=== PATIENT | female | born 1975 | race Caucasian/White ===

== ENCOUNTER 2023-06-18 18:31 | Emergency (ER) | payer MEDICARE, MEDICAID, SELFPAY ==
[2023-06-18 18:32] VITALS: BP 151/104; PULSE 84; RESP 18; TEMP 36.9; O2SAT 98; BMI 38.0
--- NOTE | 2023-06-18 19:06 | EXP.UTC ---
Discharge Plan Disposition Patient Disposition: Home, Self-Care Condition: Good Prescriptions Prescriptions: New amoxicillin [amoxicillin] 875 mg tablet 875 mg PO Q12H Qty: 20 0RF benzonatate [benzonatate] 100 mg capsule 100 mg PO TIDP PRN (Reason: Cough) Qty: 30 0RF prednisone 10 mg tablet 10 mg PO BID 3 Days Qty: 6 0RF Referrals Follow up/Referrals: Haroldo Mathias [Primary Care Provider] - See instructions Activity Restrictions/Add. Instructions Additional Instructions/Restrictions: Drink plenty of fluids. Take tylenol or ibuprofen for pain or fever. Take the medications as directed. Follow up with your regular doctor. GO TO THE ER FOR ANY WORSENING SYMPTOMS Clinical Impressions Clinical Impression: Strep throat Instructions Patient Instructions: Strep Throat, DI for Strep Throat Discharge ED Provider: Jesse Lehman [facility] HPI General Stated complaint: cough, congestion Time Seen by Provider: 06/18/23 19:05 History of Present Illness Provider Complaint: She states that for the past 2 days she has had sore throat, chills, and low grade fever. Related Data Previous Rx's Medication Instructions Recorded amoxicillin 875 mg tablet 875 mg PO Q12H #20 tabs 06/18/23 benzonatate 100 mg capsule 100 mg PO TIDP PRN Cough #30 caps 06/18/23 prednisone 10 mg tablet 10 mg PO BID 3 days #6 tabs 06/18/23 [facility] Disclaimer: The information contained in this section may have been updated after the patient was seen, as this information can be updated by other users. Social History Smoking Status: Never smoker alcohol intake: never current occupational status: employed Travel in the last 8 weeks: None ROS Obtained: Yes All systems reviewed & no additional complaints except as documented Constitutional Constitutional: Reports chills and Reports fever(s) Eyes Eyes: Denies eye discharge ENT Ears, Nose, Mouth, and Throat: Reports as per HPI Cardiovascular Cardiovascular: Denies chest pain Respiratory Respiratory: Denies chest congestion and Reports cough Gastrointestinal Gastrointestingal: Reports nausea; Denies abdominal pain, constipation, cramping, diarrhea or vomiting Musculoskeletal Musculoskeletal: Denies arthralgias Integumentary/Breasts Skin/Breast: Denies rash Neurologic Neurologic: Denies paresthesias Physical Exam General General appearance: alert and in no apparent distress Head Head exam: atraumatic, normocephalic and normal inspection Eye Eye exam: Present normal appearance, PERRL and EOMI ENT ENT exam: Present mucous membranes moist and normal external ear exam Expanded ENT Exam TM/Canal exam: Bilateral TM: erythema and bulging Nose exam: Absent sinus tenderness Mouth exam: Present normal external inspection; Absent drooling Teeth exam: Present normal inspection Throat exam: Present tonsillar erythema, tonsillomegaly and tonsillar exudate Neck Neck exam: Present normal inspection, full ROM and trachea midline; Absent tenderness, meningismus or lymphadenopathy Chest Chest inspection: Present normal inspection and symmetric chest wall rise; Absent tenderness Respiratory Respiratory exam: Present normal lung sounds bilaterally; Absent respiratory distress, wheezes or stridor Cardiovascular Cardiovascular exam: Present regular rate and normal rhythm; Absent systolic murmur or diastolic murmur Abdominal Exam Abdominal exam: Present soft and normal bowel sounds; Absent distention, tenderness, guarding, rebound or rigidity Extremities Exam Extremities exam: Present normal inspection and normal capillary refill; Absent calf tenderness Back Exam Back exam: Present normal inspection and full ROM; Absent tenderness, CVA tenderness (R) or CVA tenderness (L) Neurological Exam Neurological exam: Present alert, oriented X3 and CN II-XII intact Psychiatric Psychiatric exam: Present normal affect and normal mood Skin Skin exam: Present warm, dry, intact and normal col
[2023-06-18 19:27] LABS: UTC Strep Screen (Rapid) Positive (Negative)
[2023-06-18 19:48] VITALS: BP 126/63; PULSE 84; RESP 18; TEMP 36.9; O2SAT 98
== END 2023-06-18 19:50 | disposition home or self-care (01) ==
PROVIDERS: Emergency Provider Nurse Practitioner Family; PCP Pediatrics
DX: J02.0 Streptococcal pharyngitis (principal); R07.0 Pain in throat; R05.9 Cough, unspecified; R09.81 Nasal congestion; R50.9 Fever, unspecified
CPT/HCPCS: 87880; 99204; 99212; G0463

== ENCOUNTER 2024-12-29 15:40 | Outpatient (CLI) | payer MEDICARE, MEDICAID, SELFPAY ==
[2024-12-29 18:48] LABS: Basophils % 0.7 % (0.1-2.0); Eosinophils # 0.1 Kmm3 (0.0-0.4); Eosinophils % 1.8 % (0.1-12.0); Hematocrit 41.3 % (37.0-47.0); Hemoglobin 13.3 g/dL (12.2-16.2); Immature Granulocytes # 0.01 10^3uL; Immature Granulocytes % 0.2 %; Lymphocytes # 2.3 K/mm3 (0.7-4.5); Lymphocytes % 36.7 % (10-50); Mean Corpuscular HGB Conc 32.2 g/dL (31.8-35.4); Mean Corpuscular Hemoglobin 27.1 pg (27.0-31.2); Mean Corpuscular Volume 84.1 fl (81-99); Mean Platelet Volume 10.2 fl (7.4-10.4); Monocytes # 0.3 K/mm3 (0.1-1.0); Monocytes % 4.2 % (1.7-9.3); Neutrophils # 3.5 K/mm3 (1.8-7.8); Neutrophils % 56.4 % (37.0-80.0); Nucleated Red Blood Cells # 0 10^3/uL; Nucleated Red Blood Cells % 0 %; Platelet Count 296 K/mm3 (142-424); Red Blood Count 4.91 M/mm3 (4.20-5.40); Red Cell Distribution Width 14.2 % (11.5-17.5); Red Cell Distribution Width-SD 43.6 fL; White Blood Count 6.2 K/mm3 (4.8-10.8)
[2024-12-29 19:15] LABS: Hemoglobin A1C 5.8 % (4.0-6.0)
[2024-12-29 19:53] LABS: Alanine Aminotransferase 14 U/L (12-78); Albumin Level 4.5 g/dl (3.5-5.0); Albumin/Globulin Ratio 1.4 (1.1-1.8); Alkaline Phosphatase 75 U/L (38-126); Anion Gap 6.1 mEq/L (5-15); Aspartate Amino Transferase 22 U/L (14-36); Bilirubin,Total 0.4 mg/dl (0.2-1.3); Blood Urea Nitrogen 10 mg/dl (7-17); Calcium 9.4 mg/dl (8.4-10.2); Carbon Dioxide 30 mmol/L (22.0-30.0); Chloride 103 mmol/L (98-107); Chol/HDL Ratio 4.1 (1-3.5); Cholesterol 234 mg/dl (140-200); Estimated Glomerular Filt Rate 77 ml/min (>60); GFR (African American) 93 ML/MIN (>60); Globulin 3.3 g/dL (1.3-3.2); Glucose 101 mg/dl (74-100); HDL Cholesterol 57 mg/dl (40-60); Potassium 5.1 mmoL/L (3.5-5.1); Sodium 134 mmol/L (136-145); Total Protein,Serum 7.8 g/dl (6.3-8.2); Triglycerides 120 mg/dl (30-150); VLDL Cholesterol 24 mg/dL (0-40)
[2024-12-29 20:04] LABS: Direct LDL Cholesterol 141.52 mg/dL (100-129)
[2024-12-29 20:26] LABS: Thyroid Stimulating Hormone 1.18 uIU/mL (0.465-4.68)
[2024-12-29 21:42] LABS: HIV Combo NEGATIVE (Negative)
[2024-12-29 21:52] LABS: Hepatitis C Ab Qual. W/ RFX NEGATIVE (Negative)
[2024-12-31 05:13] LABS: Hepatitis B Surface Antigen Negative (Negative)
== END 2024-12-29 23:59 | disposition home or self-care (01) ==
LOC: LAB.DROPOF 12-30 13:23
PROVIDERS: PCP Family Medicine; Visit Provider Family Medicine
DX: E11.9 Type 2 diabetes mellitus without complications (principal); Z76.89 Persons encountering health services in other specified circumstances; Z11.59 Encounter for screening for other viral diseases
CPT/HCPCS: 80053; 80061; 83036; 84443; 85025; 86803; 87340; 87389

== ENCOUNTER 2025-01-13 17:13 | Outpatient (CLI) | payer MEDICARE, MEDICAID, SELFPAY ==
--- OUTSIDE RECORDS SUMMARY | 2022-01-16 10:30 | XMS_ITS | Continuity of Care Document ---
Author Organization [facility] Address [address] [place] [address] Phone Care Team Providers Care Manager Food Beverage Name Role Phone Danis Petit MD Unavailable Unavailable Allergies, Adverse Reactions, Alerts Substance Reaction Status Criticality Sulfa (Sulfonamide Antibiotics) DifficultyBreathing, I tchyEyes, Active No Information Medications Medication Instructions Dosage Effective Dates (start - stop) Status Comments buspirone 10 mg tablet - Act namita topiramate 25 mg tablet - Ac tive diclofenac 1 % topical gel - Active methocarbamol 750 mg tablet - Active naproxen 500 mg tablet - Act namita venlafaxine ER 150 mg capsule,extended release 24 hr - Active ergocalciferol (vitamin D2) 1,250 mcg (50,000 unit) capsule - Active cetirizine 10 mg tablet TAKE 1 TABLET BY MOUTH EVERY DAY - Active gabapentin 800 mg tablet - Active oxycodone-acetaminophen 7.5 mg-325 mg tablet - Active oxycodone-acetaminophen 10 mg-325 mg tablet - Active escitalopram 10 mg tablet - Active montelukast 10 mg tablet - Active gabapentin 600 mg tablet - Active buspirone 15 mg tablet TAKE ONE TABLET B Y MOUTH TWO TIMES DAILY - Active pantoprazole 40 mg tablet,delayed release TAKE ONE TABLET BY MOUTH ONCE DAILY - Active prednisone 10 mg tablet TAKE 5 TABS BY M OUTH DAILY FOR 2 DAYS,4 TABS DAILY FOR 2 DAYS,3 TABS DAILY FOR 2 DAYS, 2 TABS DAILY FOR 2 DAYS,1 TAB DAILY FOR 2 DAYS,1/2 TAB DAILY FOR 2 DAYS - Active Procedures Procedure Date Office/outpatient visit,vera decker 2021 Advance Directives Directive Yes / No Effective Date File Name No Information Encounters Encounter Description Practice Location Reason(s) For Visit Diagnoses Date Provider Providers Copied on Encounter Office/outpat ient visit,[facility] [address] [place], [address], [place] tel:[phone] 700 [facility] Chad Low back pain, unspecified 2 Damaso Moscoso. [facility] [place], [address], . tel:[phone] Referring Provider: Danis Petit, [facility] [place], [address]. tel:[phone] Family History Family Member Type Diagnosis Age At Onset Brother Problem (finding) Mental illness Mother Problem (finding) Mental illness Sister Problem (finding) Family history of Spine Disorder Brother Problem (finding) Depression Father Problem (finding) Renal disease Mother Problem (finding) Cancer Sister Problem (finding) Cancer Sister Problem (finding) Family history of Glauc oliverio Father Problem (finding) Congenital heart diseas e Mother Problem (finding) Depression Sister Problem (finding) Mental illness Brother Problem (finding) Family history of Osteo arthritis Father Problem (finding) Family history of Glauc oliverio Mother Problem (finding) Family history of Osteo arthritis Brother Problem (finding) Family history of Spine Disorder Mother Problem (finding) Blood disorder Father Problem (finding) Diabetes mellitus Mother Problem (finding) Congenital heart diseas e Brother Problem (finding) Cancer Sister Problem (finding) Family history of Osteo arthritis Mother Problem (finding) Family history of Spine Disorder Sister Problem (finding) Depression Payers Payer name Insurance type Covered libertarian ID Authoriza tishmuel(s) Medicare [address] [place] [id number] Well[employer] Medicaid CI [id number] Social History Type Description Quantity Date Captured Comments Alcohol Use Details No Caffeine Use Details Tobacco Use Status Smoking Status Current every day smoker 2021 Sex Female Vital Signs Date / Time: Height Weight BMI Pulse Rate Blood Pressure Temperature Respiratory Rate Body Surface Area Head Circumference Head Circ. Percentile Wt./Woody. Percentile BMI percentile Pulse Ox Inhaled Ox 2:27 PM 61.00 in 92.533 kg (204.00 lbs) 38.5 5 kg/m eter (2) 161/79 mm[Hg] 99 % Chief Complaint And Reason For Visit No Information Reason For Referral Reason For Referral No Information History Of Present Illness Encounter Date Complaint History Of Prese nt Illness back pain Functional Status Date Functional Assessmen t Pain Score 6/10 Instructions Date Instruction Additional Infor mation No Information Assessments Type Assessment Date No Information Patient Care Teams Name Effective Dates (start - stop) Status Members No Information
--- NOTE | 2025-01-13 17:00 | MR_ITS ---
PROCEDURE INFORMATION: Exam: MR Lumbar Spine Without and With Contrast Exam date and time: 01/13/2025 5:32 PM Age: 49 years old Clinical indication: Low back pain; Lbp down left leg with tingling and numbness; Additional info: Annular tear l3-l4 TECHNIQUE: Imaging protocol: Magnetic resonance imaging of the lumbar spine without and with contrast. Contrast material: ISOVUE; Contrast volume: 18 ml; Contrast route: IV; COMPARISON: No relevant prior studies available. FINDINGS: Bones/joints: Nonspecific bilateral T2/STIR hyperintense signal changes involving the pedicles of L3 through L5 may represent stress reactive changes. Spinal cord: Visualized cord, conus medullaris and cauda equina are unremarkable without compression. L1-L2: L1-L2 small broad-based posterior disc protrusion indents upon the ventral thecal sac without significant spinal canal or neural foraminal stenosis. L2-L3: L2-L3 small broad-based posterior disc protrusion with facet osteophytosis results in mild bilateral neural foraminal stenosis and mild spinal canal stenosis. L3-L4: L3-L4 small broad-based posterior disc protrusion having left subarticular T2 hyperintensity zone with facet osteophytosis results in moderate bilateral neural foraminal stenosis and mild spinal canal stenosis. L4-L5: L4-L5 moderate broad-base posterior disc protrusion having left subarticular T2 hyperintensity zone with facet osteophytosis results in moderate bilateral neural foraminal stenosis and mild spinal canal stenosis. L5-S1: L5-S1 small broad-based posterior disc protrusion having central T2 hyperintensity zone with facet osteophytosis results in mild bilateral neural foraminal stenosis without spinal canal stenosis. Soft tissues: Unremarkable. IMPRESSION: 1. Nonspecific bilateral T2/STIR hyperintense signal changes involving the pedicles of L3 through L5 may represent stress reactive changes. 2. Vnxw-tu-irwwmbxr multilevel discogenic degenerative changes greatest from L3 through L5 with spinal canal and neural foraminal stenosis as discussed above.
--- OUTSIDE RECORDS SUMMARY | 2025-01-13 17:16 | XMS_ITS | Clinical Summary ---
Author Organization [facility] Address [address] [facility], [place] [address] [place] [address] Phone Care Team Providers Care Public Transportation Inspector Name Role Phone Anne SNIDER, Zackery Liriano [phone] Conditions or Problems Problem Name Problem Code Onset Date Status Entry Date Provider Comment Standard Description Annotate INTERVERTEBRAL DISC DISORDERS WITH RADICULOPATHY, LUMBAR REGION M51.16 (ICD-10-C M) Active Zackery Rodríguez MD Intervertebral disc disorders with radiculopathy, lumbar region Medications Medication Instructions Start Date Stop Date Generic Name NDC Provider NORCO 5-325 MG ORAL TABLET Take 1 tab TID 2 HYDROCODONE-AC ETAMINOPHEN [id number] Zackery Rodríguez MD CLARITIN TABS [place] 2 LORATADINE TABS [id number] Zackery Rodríguez MD WELLBUTRIN TABLET [facility] 2 BUPROPION HCL TABS [id number] Zackery Rodríguez MD GABAPENTIN CAPS Non-[place] 2 GABAPENTIN CAPS [id number] Zackery Rodríguez MD Medications Administered No information available. Allergies, Adverse Reactions, Alerts Allergy Name Reaction Description Start Date Severity Statu s Provider CODEINE Critical Zackery robertson MD ASPIRIN Cameron robertson MD BACTRIM Critical Zackery robertson MD Results No information available. Plan of Care Type Date Detail Patient education lumbar%20disc% 20herniation Procedures Code Procedure Name Date Entry Date [facility]-[id number] Medications Documented 1124F No ACP/POA documented but discussed 05/18 G8483 No flu shot received; allergy etc. 2438T5T No pneumococcal vaccine received; no reas on 4004F Tobacco user- receiv ed cessation information G8417 BMI above normal, f/u plan documented 201 12/04/21 G8730 Pain Assessment posi tive with follow up plan G8427 Medication Reconcili ation Completed CPT-G8427 Vital Signs Date Name Value Unit Description BMI (Body Mass Index) 30.80 kg/m2 Bod y Mass Index (Ratio) BP Diastolic 95 mm[Hg] blood pressu re, diastolic BP Systolic 132 mm[Hg] blood pressur e, systolic Heart Rate 80 /min pulse rate Height 61 [in_us] height E&M Weight Measured 163 [lb_av] weight E& M Weight Measured 163 [lb_av] weight E& M Immunizations No information available. Advance Directives No information available.
--- OUTSIDE RECORDS SUMMARY | 2025-01-13 17:17 | XMS_ITS | Clinical Summary ---
Author Organization [facility] Address [address] [place] [id number] Phone Care Team Providers Care Semiconductor Packages Platemaker Name Role Phone Keaton COOLEYGabriella Primary Care Physician [phone] Conditions or Problems Problem Name Problem Code Onset Date Status Entry Date Provider Comment Standard Description Annotate NASOPHARYNG ITIS 59672684 (SNOMED CT) 08/25 Inactive 08/25 Susan Garcia APRN Nasopharyngiti s CBC, abnormal 261841424 (SNOMED CT) 09/12 Resolved 09/12 Susan Garcia APRN Full blood count outside reference range Disturbance of skin sensation 05331322 (SNOMED CT) 09/12 Resolved 09/12 Susan Garcia APRN Skin sensation disturbance Ovarian cyst, left 52231938 (SNOMED CT) 09/18 Active 07/28 Susan Garcia APRN Cyst of ovary HEMORRHAGIC CYST Disturbance of skin sensation 27352796 (SNOMED CT) 09/12 Removed 09/12 Susan Garcia APRN Skin sensation disturbance CBC, abnormal 644516582 (SNOMED CT) 09/12 Removed 09/12 Susan Garcia APRN Full blood count outside reference range Menorrhagia 510588643 (SNOMED CT) 09/12 Active 09/12 Susan Garcia APRN Menorrhagia Breast mass, right 70616868 (SNOMED CT) 07/31 Active 07/31 Susan Garcia APRN Breast lump FATIGUE 40681294 (SNOMED CT) 07/31 Active 07/31 Susan Garcia APRN Fatigue HEALTH SCREENING 38701736 (SNOMED CT) 07/31 Inactive 07/31 Susan Garcia APRN Specialized medical examination Medications Medication Instructions Start Date Stop Date Generic Name [facility] Provider BARRY ARSHAD 100 MG ORAL CAPSULE TAKE 1 TO 2 CAPS BY MOUTH EVERY 8 HOURS NEEDED FOR COUGH 9 BENZONATATE [id number] Susan Garcia APRN LORATADINE 10 MG TABS TAKE 1 TABLET BY MOUTH 1 TIME A DAY NEEDED FOR ALLERGIES 9 LORATADINE [id number] Susan Garcia APRN FLUTICASONE PROPIONATE 50 MCG/ACT SUSP 2 SPRAYS IN EACH NOSTRIL 1 TIME A DAY 9 FLUTICASONE PROPIONATE [id number] Susan Garcia APRN Medications Administered No information available. Allergies, Adverse Reactions, Alerts Allergy Name Reaction Description Start Date Severity Statu s Provider CODEINE Critical Active Susan Garcia APRN ASPIRIN Critical Active Susan Garcia APRN BACTRIM Critical Active Susan Garcia APRN Results Date Name Value Unit Range Flag Description Lab Report: CBC (INCLUDES DI FF/PLT), COMPREHENSIVE METABOLIC PANEL, LIPI ... TSHREFLX FT4 1.04 m[iU]/L N TSH (thy roid stimulating hormone) with reflex FT4 CHOLESTEROL 167 mg/dL 125-200 N Cholester ol [Mass/volume] in Serum or Plasma - mg/dL HDL 56 mg/dL >OR = 46 N Cholesterol in HDL [Mass/volume] in Serum or Plasma - mg/dL TRIGLYCRDES 74 mg/dL <150 N Triglycer criss [Mass/volume] in Serum or Plasma - mg/dL LDL 96 MG/DL (CALC) mg/dL <130 N Cholesterol in L DL [Mass/volume] in Serum or Plasma - mg/dL CHOL/HDL % 3.0 (calc) < OR = 5.0 N cholesterol/HDL ratio, serum, percent SGPT (ALT) 8 U/L 6-29 N Alanine aminotransferase [Enzymatic activity/volume] in Serum or Plasma SGOT (AST) 16 U/L 10-30 N Aspartate aminotransferase [Enzymatic activity/volume] in Serum or Plasma ALK PHOS 48 U/L 33-115 N Alkaline phosphatase [Enzymatic activity/volume] in Blood BILI TOTAL 0.4 mg/dL 0.2-1.2 N Bilirubin. total [Mass/volume] in Serum or Plasma A/G RATIO 1.6 (calc) 1.0-2.5 N Albumin/ Globulin [Mass Ratio] in Serum or Plasma GLOBULIN TOT 2.7 G/DL (CALC) g/dL 1.9-3.7 N Globulin [Mass/volume] in Serum ALBUMIN EOP 4.3 g/dL 3.6-5.1 N Albumin [Mass/volume] in Serum or Plasma by Electrophoresis PROTEIN, TOT 7.0 g/dL 6.1-8.1 N Protein [Mass/volume] in Serum or Plasma CALCIUM 9.0 mg/dL 8.6-10.2 N Calcium [Moles/volume] in Serum or Plasma CO2 25 mmol/L 19-30 N Carbon dioxid e, total [Moles/volume] in Venous blood CHLORIDE BLD 106 mmol/L 98-110 N chloride , blood POTASSIUM 4.3 mmol/L 3.5-5.3 N Potassium [Moles/volume] in Serum or Plasma SODIUM 138 mmol/L 135-146 N Sodium [Moles/volume] in Serum or Plasma BUN/CREAT NOT APPLICABLE (calc) 6-22 Urea nitrogen/Creatinine [Mass Ratio] in Serum or Plasma EGFR 94 mL/min/1 .73m2 >OR = 60 N Glomerular filtration rate/1.73 sq M.predicted [Volume Rate/Area] in Serum, Plasma or Blood by Creatinine-based formula (MDRD) CREATININE 0.80 mg/dL 0.50-1.10 N Creatini ne [Mass/volume] in Serum or Plasma BUN 10 mg/dL 7-25 N Urea nitrogen [Mass/volume] in Serum or Plasma BG RANDOM 84 mg/dL 65-99 N Glucose [Mass/volume] in Blood Lab Report: CA 125, CBC (INC LUDES DIFF/PLT), ESTRADIOL, VITAMIN B12 B12 452 pg/mL 200-1100 N Cobalamin (V itamin B12) [Mass/volume] in Serum or Plasma BASO % MANU 0.4 % N basophils as percent of blood leukocytes, manual count EOS % MANU 3.6 % N eosinophil s as percent of blood leukocytes, manual count MONOCYTE % 3.7 % N Monocytes/ 100 leukocytes in Blood by Automated count LYMPH% P BLD 27.9 % N lymphocy evans as percent of blood leukocytes PMN % 64.4 % N Neutrophils/1 00 leukocytes in Blood by Automated count ABS BASOS 24 {Cells}/ uL 0-200 N Basophils [#/volume] in Blood ABS EOS 212 {Cells}/ uL 15-500 N Eosinophils [#/volume] in Blood ABS MONOS 218 {Cells}/ uL 200-950 N Monocytes [#/volume] in Blood ABSLYMPHCT 1646 {Cells}/ uL 850-3900 N Lymphocytes [#/volume] in Blood ABS NEUTROPH 3800 CELLS/UL 10*3/uL 8829-2527 N Neutrophils [#/volume] in Blood PLATELETK/UL 213 THOUSAND/UL 10*3/uL 140-400 N platelet count RDW 14.4 % 11.0-15.0 N Erythrocyte distribution width [Ratio] by Automated count OL-MCHC 33.0 g/dL 32.0-36.0 N mean corpus cular hemoglobin concentration, rbc MCH 27.4 pg 27.0-33.0 N MCH [Entiti c mass] by Automated count MCV 82.9 fL 80.0-100. 0 N MCV [Entitic volume] by Automated count HCT 38.6 % 35.0-45.0 N Hematocrit [Volume Fraction] of Blood by Automated count HGB 12.8 g/dL 11.7-15.5 N Hemoglobin [Mass/volume] in Blood RBC M/UL 4.66 MILLION/UL 10*6/uL 3.80-5.10 N red blood count WBC CT BLOOD 5.9 10*3/uL 3.8-10.8 N leukocy te count, blood CA-125 10 U/mL <35 N Cancer Ag 125 [Presence] in Serum or Plasma Office Visit: sore throat RAPID STREP negative Streptoc occus pyogenes DNA [Presence] in Throat by MILE with probe detection Plan of Care Type Date Detail Pending order Ultrasound Pelvi s Pending order Strep Screen 878 80 Pending order Pelvic Ultrasoun d Pending order CBC with Differe ntial Pending order B12 Pending order Estradiol Pending order CA 125 Pending order CBC with Differe ntial Pending order CMP Pending order Lipid Panel Pending order TSH to Free T-4 Pending order Fluvirin Preserv ative Free Intramuscular Suspension Pending order Ix admin via IN or PO with counseling by physician Patient education Medications Procedures Code Procedure Name Date Entry Date US PELVIS DANGELO Ultrasound Pelvis 2 CPT-21918 Strep Screen 12162 9 PU Pelvic Ultrasound 6399 [facility] # CBC with Differential 2 927 [facility] # B12 4021 [facility] # Estradiol [facility] 468[address] CA 125 CPT-70659 Fluvirin Preservativ e Free Intramuscular Suspension CPT-81083 Ix admin via IN or P O with counseling by physician 6399 [facility] # CBC with Differential 2 86801 [facility] # CMP 4 68115 [facility] # Lipid Panel 08860 [facility] # TSH to Free T-4 07/31 Vital Signs Date Name Value Unit Description BMI (Body Mass Index) 27.74 kg/m2 Bod y Mass Index (Ratio) Body Temperature 98.3 [degF] temperat ure E&M Body Temperature 36.8 Cathie temperat ure in centigrade E&M BP Diastolic 76 mm[Hg] blood pressu re, diastolic BP Systolic 122 mm[Hg] blood pressur e, systolic Heart Rate 88 /min pulse rate Height 162.56 cm height in cent imeters E&M Height 64 [in_us] height E&M Weight Measured 161 [lb_av] weight E& M Weight Measured 161 [lb_av] weight E& M Weight Measured 73.18 kg weight in kilograms E&M Immunizations Vaccine Administration Date Standard Description CVX Co de Dose fluvirin preservative free intramuscular suspension 48mo+ pfs 0.5ml fluvirin preservative free intramuscular suspension 48mo+ pfs 0.5ml 140 0.5 mL Advance Directives Directive Description Start Date DISCUSSED - NO DECISION MADE
--- OUTSIDE RECORDS SUMMARY | 2025-01-13 17:17 | XMS_ITS | Clinical Summary ---
Author Organization [facility] Address [address] [place] [id number] Care Team Providers Care Physician Primary Care Sports Medicine Name Role Phone Gaurav Alvarenga MD Primary Care Provider [phone] Source Comments This information has been disclosed to you from confidential records protectedfrom disclosure by state law. You shall make no further disclosure of thisinformation without the specific, written, and informed release of theindividual to whom it pertains, or as otherwise permitted by law. A generalauthorization for the release of medical or other information is not sufficientfor the purposes of therelease of HIV test results or diagnoses. [id number] Allergies Active Allergy Reactions Criticality Noted Date Comments Aspirin Nausea Only 05/11/2019 Sulfamethoxazole-Trimethoprim Anaphylaxis High 05/11 Codeine Nausea Only 05/11/2019 Medications meloxicam (MOBIC) 15 MG tablet Take 15 mg by mouth daily. Active topiramate (TOPAMAX) 25 MG tablet Take 25 mg by mouth daily. Active SUMAtriptan (IMITREX) 50 MG tablet Take 50 mg by mouth once as needed for Migraine. Active gabapentin (NEURONTIN) 800 MG tablet Take 800 mg by mouth 3 times a day. Active methocarbamol (ROBAXIN) 750 MG tablet Take 750 mg by mouth 3 times a day. Active oxyCODONE-aceta minophen (PERCOCET) 10-325 mg per tablet Take 1 tablet by mouth every 4 hours as needed for Pain. Active diclofenac sodium (SOLARAZE) 3 % gel Apply 2 g topically 4 times a day. Active venlafaxine (EFFEXOR) 37.5 MG tablet Take 37.5 mg by mouth daily. Active busPIRone (BUSPAR) 10 MG tablet Take 10 mg by mouth 2 times a day. Active nicotine (NICODERM CQ) 21 mg/[address] 1 patch onto the skin daily. Active omeprazole (PRILOSEC) 20 MG capsule Take 20 mg by mouth every morning before breakfast. Active Active Problems Problem Noted Date Diagnosed Date Chronic left-sided low back pain with left-sided sciatica 05/11/2019 Neck pain 05/11/2019 Hand pain 05/11/2019 Hand weakness 05/11/2019 Social History Tobacco Use Types Packs/Day Years Used Date Smoking Tobacco: Every Day Cigarettes Smokeless Tobacco: Never Alcohol Use Standard Drinks/Week Comments Never 0 (1 standard drink = 0.6 oz pur e alcohol) AUDIT-C Answer Date Recorded Frequency of Alcohol Consumption Never 05/11/2019 Average Number of Drinks Not on file 019 Frequency of Binge Drinking Not on file 04/27 Comments Unknown Sex and Gender Information Value Date Recorded Sex Assigned at Not on file Legal Sex Female 4:19 PM EST Gender Identity Not on file Sexual Orientation Not on file Last Filed Vital Signs Vital Sign Reading Time Taken Comments Blood Pressure 110/70 05/11/2019 2:04 PM EDT Pulse 87 05/11/2019 2:04 PM EDT Temperature 37.1 C (98.7 F) 05/11/2019 2:04 PM EDT Respiratory Rate - - Oxygen Saturation 97% 05/11/2019 2:04 PM EDT Inhaled Oxygen Concentration 97% 05/11/2019 2 :04 PM EDT Weight 84.1 kg (185 lb 6.4 oz) 05/11/2019 2:04 P M EDT Height 154.9 cm (5' 1 ) 05/11/2019 2:04 PM EDT Body Mass Index 35.03 05/11/2019 2:04 PM EDT Plan of Treatment Not on file [place] [address] [place] [address] Care Teams Physician Primary Care Sports Medicine Relationship Specialty Start Date End Date Gaurav Alvarenga MD PCP - General Family Medicine 05/11/19
--- OUTSIDE RECORDS SUMMARY | 2025-01-13 17:17 | XMS_ITS | Data Portability ---
Author Organization [facility]ly [facility] Address [address] [place] [address] Care Team Providers Care Queen'S Counsel Name Role Phone THELMATANISHA MANZANO Primary Care Provider Assessment Encounter Date Assessment Date Assessment LastModified by Organization Details LastModified Time 10/22/2022 10/22/2022 HPI: This is a 47-year-old female with neck and low back pain She has chronic neck and low back pain. Has been seen in the past at a pain clinic in [facility]. Denies any illicit drug use, incontinence, or cauda equina symptoms. Most recent MRI was within the last year. I do not have this for review today. Her pain clinic close, her PCP has been prescribing opioid medication since then. She presents today for medication management and further interventional management. No prior neck or back surgery. Was declared to not be a surgical candidate at [facility]. Anticoagulants: None PMHx: None INJ Hx: Multiple lumbar injections PSHx/Surgical Evaluation: Not a surgical candidate per evaluation by [facility] IMAGING: MRI requested The above image findings were discussed with the patient. Current medications include Percocet and gabapentin. The patient feels that they receive adequate analgesia and activity improvement with the medication. The patient denies side effects from the medications. UDS obtained. ORT, PHQ-9 and DORENE were reviewed today. MAGNUS report was reviewed today and is appropriate. Based upon the above I would consider the patient to be Low risk. PT The patient completed over six weeks of physical therapy in the past without benefit for their pain ASSESSMENT/PLAN This is a 47-year-old female with neck and low back pain I will provide her with neck and low back, exercise program today. We will prescribe [place] 10 mg 3 times daily as well as gabapentin 800 mg 3 times daily. I will have her follow-up in 1 month for reassessment. We will request the records from [facility] as well as her MRI. Pending results, recommend TELMA. If she is not a surgical candidate and does not derive significant benefit from her injection therapy, consider SCS External records were reviewed and discussed as above, including imaging, clinical notes, and relevant labs. Much of this encounter is an electronic umbrella frame maker/birmingham slation of spoken language to printed text. The electronic translation of spoken language may permit erroneous or at times nonsensical words of phrases to be inadvertently transcribed; Although I have reviewed the note for such errors, some may still exist. Not available 10/22/2022 13:42:03 05/20/2023 05/20/2023 BRIEF PAIN HISTORY: 47-year-old female follow-up neck and arm pain off thoracic and low back pain into the legs on both sides. Has not been seen in this office previously. She is a transfer from [facility]. States that she transferred here due to not being able to get a ride down to [place]. She lives in [facility] and she reports that it is too far for her to drive. Looks like at that time she was seeing Dr. Montiel undergoing work-up and treatment for mainly low back and leg pain. There is some discussion about possible epidural injection however patient reports that she cannot have injections. She states that she was told by multiple physicians that she should not have injections. She also reports that her body rejects the injections and that it turns the medication back against her increasing her pain back to day 1 . She reports that she has had evaluation by a number different surgeons who have told her that her back is too severe to undergo surgical correction. She reports that she is required to get frequent updated MRI due to her spine deteriorating at a quicker than normal pace. Her last MRI is 2008 of the cervical, thoracic, or lumbar spine as reported below. Since last appointment, she was in the ED for abdominal pain. Abdominal CT was read as normal. She states that she was told that her abdominal pain is related to the severity of her low back pain causing pain referred to her abdomen. She was getting a combination of hydrocodone and gabapentin to Dr. Montiel's office. Does not feel that this was a sufficient quality due to the severity of her spine. Looks like she used to see [facility] for pain and was on high-dose opiate medication including oxycodone. SX: She reports pain in her neck with radiation into the arms bilaterally. Also into the thoracic spine and then to lumbar spine down both legs to the feet. States the pain is a constant aching, burning, stabbing, throbbing is aggravated with activity including standing, walking, bending, lifting, twisting. She reports numbness weakness tingling bilateral upper and lower extremities. States that she walks with a walker because of the pain. PERTINENT IMAGING: MR CERVICAL SPINE WITHOUT CONTRAST, 11/23/2018 C2/C3: Unremarkable. C3/C4: Unremarkable. C4/C5: Unremarkable. C5/C6: There is left disc osteophyte complex formation with uncovertebral spurring causing left foraminal stenosis. The central canal and right foramen are patent. C6/C7: There is mild left uncovertebral spurring but no foraminal or central stenosis. C7/T1: Unremarkable. MRI THORACIC SPINE WITHOUT CONTRAST, 11/23/2018 Level by level analysis: There are mild multilevel small disc bulges present. There is no central canal narrowing. There is no foraminal encroachment identified. MRI LUMBAR SPINE WITHOUT CONTRAST, 11/23/2018 L1/L2: Unremarkable. L2/L3: Unremarkable. L3/L4: There is left foraminal annular tear and disc bulge associated with tethering of the left L3 dorsal root ganglion. This is new from comparison study. The central canal, lateral recesses and right foramen are patent. L4/L5: There is stable broad-based disc bulge with foraminal crowding, left greater than right. No central stenosis. L5/S1: Stable central disc protrusion with subligamentous extension behind L5, without neural encroachment, and no new abnormalities noted. OTHER TREATMENTS: Conservative: Reports previously 6 weeks physical therapy without improvement. Surgical: Reports that she is not a surgical candidate due to the severity of the disease in her spine RF: Prior PM: Yes, [facility] for pain Smoker: Currently 1 pack/day smoker Employed: She reports that she is disabled Diabetic: Denies Anticoagulated: Denies INJECTION HX: Reports previously failure. States that her body rejects the injections MEDICATION HX: Hydrocodone 10/325 mg 1 3 times a day. Gabapentin 800 mg 1 3 times daily. COMPLIANCE: MAGNUS/OARS/INSPEC T was reviewed and appropriate I will send this for LCMS confirmation for a baseline since the patient is new to the practice. Based on above screening, co-morbidities, MED, and my clinical judgement: I consider this patient to be high risk for abuse/diversion due to comorbidities and drug-seeking behavior. MDM: Reviewed imaging and we discussed treatment options. She is refusing injections. Reports prior failure and states that her body rejects injections. Multiple nonorganic signs on exam. Her pain is out of proportion to exam and findings on imaging. Guarded outlook regarding opiate management on this patient. I will refill her hydrocodone and gabapentin at this time. We will follow compliance closely PLAN: 1. Medication management as discussed above Discussed new orders/changes with patient. Patient expressed agreement and full understanding of above plan. All questions answered in full. Follow-up 30 days. Much of this encounter is an electronic umbrella frame maker/birmingham slation of spoken language to printed text. The electronic translation of spoken language may permit erroneous or at times nonsensical words of phrases to be inadvertently transcribed; Although I have reviewed the note for such errors, some may still exist. Not available 05/20/2023 15:32:58 06/24/2023 06/24/2023 48-year-old fema le follow-up for chronic back and leg pain along with multisite pain issues including neck and arms, multiple joints, thoracic. She uses a walker secondary to her diffuse pain. Originally seen in [place]. First seen by me in April. At that time she reports that she had not had any of her medication in multiple months secondary to unable to find a ride to the [place] clinic which is why she requested transfer to our clinic which is closer. Review of her last urine screen shows that she is inappropriately positive for oxycodone. After she denies. She then states that she received oxycodone while in the hospital. She had no reported hospital visits during that time. She states since last appointment she was in the hospital for pneumonia. Review of epic shows that she is in ED for abdominal pain. Treated and released. She tried to reschedule her appointment and received a bridge prescription secondary to her illness. This was declined if she was seen in the ED and not admitted to the hospital. Today she reports that she is past due for medication. Preliminary urine screen shows positive for hydrocodone, oxycodone, benzodiazepine medications. She reports previously having been on oxycodone for her pain. She does not feel like her pain has been well controlled. She thinks that she should be back on oxycodone for her symptoms. She declines injection therapy. States the injections only make her symptoms worse. She reports pain in her neck with radiation into the arms bilaterally. Also into the thoracic spine and then to lumbar spine down both legs to the feet. States the pain is a constant aching, burning, stabbing, throbbing is aggravated with activity including standing, walking, bending, lifting, twisting. She reports numbness weakness tingling bilateral upper and lower extremities. States that she walks with a walker because of the pain. Discussed today due to compliance issues that I have safety concerns and I no longer feel comfortable prescribing her any controlled medications. This will be her last prescription today. She has declined injections. BRIEF PAIN HISTORY: 47-year-old female follow-up neck and arm pain off thoracic and low back pain into the legs on both sides. Has not been seen in this office previously. She is a transfer from [facility]. States that she transferred here due to not being able to get a ride down to [place]. She lives in [facility] and she reports that it is too far for her to drive. Looks like at that time she was seeing Dr. Montiel undergoing work-up and treatment for mainly low back and leg pain. There is some discussion about possible epidural injection however patient reports that she cannot have injections. She states that she was told by multiple physicians that she should not have injections. She also reports that her body rejects the injections and that it turns the medication back against her increasing her pain back to day 1 . She reports that she has had evaluation by a number different surgeons who have told her that her back is too severe to undergo surgical correction. She reports that she is required to get frequent updated MRI due to her spine deteriorating at a quicker than normal pace. Her last MRI is 2008 of the cervical, thoracic, or lumbar spine as reported below. Since last appointment, she was in the ED for abdominal pain. Abdominal CT was read as normal. She states that she was told that her abdominal pain is related to the severity of her low back pain causing pain referred to her abdomen. She was getting a combination of hydrocodone and gabapentin to Dr. Montiel's office. Does not feel that this was a sufficient quality due to the severity of her spine. Looks like she used to see [facility] for pain and was on high-dose opiate medication including oxycodone. PERTINENT IMAGING: MR CERVICAL SPINE WITHOUT CONTRAST, 11/23/2018 C2/C3: Unremarkable. C3/C4: Unremarkable. C4/C5: Unremarkable. C5/C6: There is left disc osteophyte complex formation with uncovertebral spurring causing left foraminal stenosis. The central canal and right foramen are patent. C6/C7: There is mild left uncovertebral spurring but no foraminal or central stenosis. C7/T1: Unremarkable. MRI THORACIC SPINE WITHOUT CONTRAST, 11/23/2018 Level by level analysis: There are mild multilevel small disc bulges present. There is no central canal narrowing. There is no foraminal encroachment identified. MRI LUMBAR SPINE WITHOUT CONTRAST, 11/23/2018 L1/L2: Unremarkable. L2/L3: Unremarkable. L3/L4: There is left foraminal annular tear and disc bulge associated with tethering of the left L3 dorsal root ganglion. This is new from comparison study. The central canal, lateral recesses and right foramen are patent. L4/L5: There is stable broad-based disc bulge with foraminal crowding, left greater than right. No central stenosis. L5/S1: Stable central disc protrusion with subligamentous extension behind L5, without neural encroachment, and no new abnormalities noted. OTHER TREATMENTS: Conservative: Reports previously 6 weeks physical therapy without improvement. Surgical: Reports that she is not a surgical candidate due to the severity of the disease in her spine RF: Prior PM: Yes, [facility] for pain Smoker: Currently 1 pack/day smoker Employed: She reports that she is disabled Diabetic: Denies Anticoagulated: Denies INJECTION HX: Reports previously failure. States that her body rejects the injections MEDICATION HX: Hydrocodone 10/325 mg 1 3 times a day-last prescription today Gabapentin 800 mg 1 3 times daily-last prescription today COMPLIANCE: MAGNUS/OARS/INSPEC T was reviewed and appropriate Last urine screen April shows inappropriately positive for oxycodone not prescribed. Preliminary urine screen today shows positive for oxycodone, opiates, benzodiazepines I will not need to send this away as she has clear compliance issues with inappropriately positive for oxycodone and continuing drug-seeking behavior. I no longer feel comfortable prescribing for the patient. Last prescription provided today MDM: Patient with pain out of proportion to exam. Multiple nonorganic signs on exam. Drug-seeking behavior. Last urine screen inappropriately positive for oxycodone. Originally denies oxycodone use but states later that she received it from the hospital. No hospital admissions in [facility] during this time are noted. Today she will receive her last prescription. She has declined injection therapy and other nonopioid options. She will follow-up with another provider. PLAN: 1. As above. No further controlled medications from this office after today. Discussed new orders/changes with patient. Patient expressed agreement and full understanding of above plan. All questions answered in full. Follow-up: Do not schedule back Much of this encounter is an electronic umbrella frame maker/birmingham slation of spoken language to printed text. The electronic translation of spoken language may permit erroneous or at times nonsensical words of phrases to be inadvertently transcribed; Although I have reviewed the note for such errors, some may still exist. Not available 06/24/2023 10:34:05 Plan of Treatment Reminders Order Date Submit Date Provider Last Modified By Organization Details Last Modified Time Details Appointments None recorded. Lab drug screen, urine 2022 023 [facility], [address], [address], 3 13:51:55 drug screen, urine [address], [address], 3 12:46:16 drug screen, urine - Qualitative LCMS Screen Panel [address], [address], 16:44:49 Referral None recorded. Procedures None recorded. Surgeries None recorded. Imaging None recorded. Medication Orders hydrocodone 10 mg-acetamin ophen 325 mg tablet 2022 023 [facility], [address] [facility] [place], [address], 3 11:18:11 gabapentin 800 mg tablet 2022 023 [facility], [address], [place], [address], 3 11:18:37 hydrocodone 10 mg-acetamin ophen 325 mg tablet 2022 023 [id number] [place], [address], 3 16:02:17 gabapentin 800 mg tablet 2022 023 [email or web address] [id number], [address] [place] [address], [address], 3 15:27:18 hydrocodone 10 mg-acetamin ophen 325 mg tablet 2022 023 [id number], [address] [place], [address], 3 13:44:14 gabapentin 800 mg tablet 2022 023 [id number], [address] [place] [address], [address], 13:44:15 Patient TargetsNo targets recorded. Patient Instructions Encounter Date Encounter Id Patient Instructions Last Modified By Organization Details Last Modified Time 10/22/2022 [id number] high blood pressure: care instructions Not available 10/22/2022 13:44:02 A healthy lifestyle: care instructions Not available 10/22/2022 13:44:03 advance directives: care instructions Not available 10/22/2022 13:44:03 depression and chronic disease: care instructions Not available 10/22/2022 13:44:02 safe use of opioid pain medicine: care instructions Not available 10/22/2022 13:44:03 medical record request* - MRI L-spine from 2019--current [facility] Not available 06/08/2023 05:01:44 medical record request* - Please send last office note Not available 08/26/2023 08:34:49 Opioid Risk Tool (ORT)* Not available 10/22/2022 13:44:03 Reason for Referral None Reported. Results Created Date Observation Date Name Description Value Unit Range Abnormal Flag Note LastModifiedBy Organization Detail LastModifiedTime 10/23/1910/22/2022 Opioi d Risk Tool (ORT) * ORT 2 Not Available [address], [place], [address], 10/22/2022 13:18:25 Result Notes None recorded. Problems Name Problem SNOMED Code Status Onset Date Resolution Date Notes Provider Name and Address Organization Details Recorded Time Lumbar radiculopathy 747300805 Active 2022 Kasandra stamper null, [place] - [facility] 3 15:17:46 Lumbar spondylosis 775498972 Active 2022 Kasandra stamper null, [place] - [facility] 3 15:17:46 Overweight 852956542 Active 2022 Kasandra stamper null, [place] - [facility] 3 15:17:50 Long-term drug therapy Active 2022 CLAUDIA MONTIEL MD [address] [place] [address], [phone] [facility] [place] - [facility] 3 13:42:59 Problem Notes None recorded. Medical Equipment None Reported. Allergies Allergen ID Allergen Name Allergen Category Reaction Reaction Severity Criticality Documentation Date Start Date Code Code System Note Provider Name and Address Organization Details Recorded Time [id number] Substance with sulfonami de structure and antibacte rial mechanism of action (substanc e) medicatio n anaphylax is itching nausea rash respirato ry distress vomiting Not available Not available Not available Not available Not available Not available Not available 10/22/2022 43217 8003 SNOMED GIOVANI Arambula [facility] 3 13:14:11 [id number] codeine medicatio n itching nausea other Not available Not available Not available Not available 10/22/2022 2670 RxNorm GIOVANI Arambula [facility] 3 13:14:11 Medications Name Sig Start Date Stop Date Status Note LastModified by Organization Details LastModified Time prednisone 10 mg tablet TAKE ONE TABLET BY MOUTH TWICE A DAY FOR 3 DAYS 06/24 completed Not Available Not Available Not Available venlafaxine ER 75 mg capsule,ext ended release 24 hr TAKE 1 CAPSULE BY MOUTH ONCE DAILY. active Not Available Not Available No t Available cetirizine 10 mg tablet active Not Available Not Available Not Available sucralfate 1 gram tablet TAKE 1 TABLET BY MOUTH 4 TIMES DAILY NEEDED FOR PAIN FOR UP TO 14 DAYS. 06/24 completed Not Available Not Available Not Available prednisone 20 mg tablet Take 1 tablet every day by oral route. 06/24 completed Not Available Not Available Not Available venlafaxine ER 150 mg capsule,ext ended release 24 hr TAKE 1 CAPSULE BY MOUTH DAILY. active Not Available Not Available No t Available topiramate 25 mg tablet TAKE 1 TABLET BY MOUTH NIGHTLY. active Not Available Not Available No t Available amlodipine 5 mg tablet TAKE 1 TABLET BY MOUTH DAILY. active Not Available Not Available No t Available hydrocodone 10 mg-acetamin ophen 325 mg tablet Take 1 Tablet by mouth 3 times daily as needed. active Not Available Not Available No t Available amoxicillin 875 mg tablet TAKE ONE TABLET BY MOUTH EVERY 12 HOURS 06/24 completed Not Available Not Available Not Available methocarbam ol 750 mg tablet TAKE 1 TABLET BY MOUTH 4 TIMES A DAY BY MOUTH FOR 30 DAYS. active Not Available Not Available No t Available gabapentin 800 mg tablet Take 1 Tablet by mouth 3 times daily as needed. active Not Available Not Available No t Available benzonatate 100 mg capsule TAKE 1 CAPSULE BY MOUTH THREE TIMES A DAY NEEDED NEEDED FOR COUGH 06/24 completed Not Available Not Available Not Available pantoprazol e 40 mg tablet,kaylah yed release TAKE 1 TABLET BY MOUTH ONCE DAILY. active Not Available Not Available No t Available buspirone 30 mg tablet TAKE 1 TABLET BY MOUTH 2 TIMES DAILY. active Not Available Not Available No t Available montelukast 10 mg tablet TAKE 1 TABLET BY MOUTH NIGHTLY. active Not Available Not Available No t Available furosemide 20 mg tablet TAKE 1 TABLET BY MOUTH DAILY. active Not Available Not Available No t Available ergocalcife rol (vitamin D2) 1,250 mcg (50,000 unit) capsule active Not Available Not Available Not Available oxycodone-a cetaminophe n 7.5 mg-325 mg tablet TAKE 1 TABLET BY MOUTH EVERY 8 HOURS NEEDED FOR CHRONIC PAIN (G89.29). 05/20 completed Not Available Not Available Not Available ondansetron 4 mg disintegrat ing tablet DISSOLVE 1 TABLET ONTO THE TONGUE EVERY 4 HOURS active Not Available Not Available No t Available fluticasone propionate 50 mcg/actuati on nasal spray,suspe nsion USE 1 SPRAY IN EACH NOSTRIL ONCE DAILY. active Not Available Not Available No t Available naproxen 500 mg tablet TAKE 1 TABLET BY MOUTH TWICE DAILY. active Not Available Not Available No t Available amoxicillin 875 mg-potassiu m clavulanate 125 mg tablet TAKE 1 TABLET BY MOUTH EVERY 12 HOURS FOR 7 DAYS. 06/24 completed Not Available Not Available Not Available Vitals Date Recorded Body height Body mass index (BMI) Body weight Heart rate Oxygen saturation Oxygen saturation in Arterial blood by Pulse oximetry Systolic blood pressure Diastolic blood pressure Provider Name and Address Organization Details Last Updated DateTime 3 154.94 cm 39.3 kg/m2 43129.2 1 g 110 /min 97 % 97 % 154 mm[Hg] 83 mm[Hg] Ruma Baker [facility] 3 13:14:53 Date Recorded Body height Body mass index (BMI) Body weight Heart rate Oxygen saturation Oxygen saturation in Arterial blood by Pulse oximetry Systolic blood pressure Diastolic blood pressure Provider Name and Address Organization Details Last Updated DateTime 3 154.94 cm 38.7 kg/m2 94502.4 4 g 76 /min 98 % 98 % 155 mm[Hg] 73 mm[Hg] Nadira Nicewell [facility] 3 14:39:27 Date Recorded Body height Provider Name an d Address Organization Details Last Updated DateTime 06/24/2023 154.94 cm Mone Anthony [facility] 06/24/2023 09:52:28 Social History Question Answer Notes LastModified by Organizat ion Details LastModified Time Tobacco Smoking Status Current Every Day Smoker Ruma Baker tyrel [facility] 10/22/2022 13:15:39 Do You Have An Advance Directive? No Information n ot available 10/22/2022 In The 14 Days Before Symptom Onset, Have You Had Close Contact With A Laboratory-confirm ed COVID-19 While That Case Was Ill? No Information n ot available 10/22/2022 In The 14 Days Before Symptom Onset, Have You Had Close Contact With A Person Who Is Under Investigation For COVID-19 While That Person Was Ill? No Information not available 10/22/2022 What Type Of Diet Are You Following? REGULAR Information n ot available 10/22/2022 What Is The Highest Grade Or Level Of School You Have Completed Or The Highest Degree You Have Received? [id number] Information not available 05/20/2023 Do You Have A Medical Power Of Director Of Leadership Development? No [email or web address] Information not available 06/24/2023 What Was The Date Of Your Most Recent Tobacco Screening? 06/24/2023 [email or web address] Information not available 06/24/2023 What Is Your Relationship Status? Information not available 10/22/2022 How Much Tobacco Do You Smoke? 1 PPD Information not available 10/22/2022 How Many Years Have You Smoked Tobacco? 30 Information not available 06/24/2023 Sex: Unknown Functional Status Question Answer Note LastModified by Organizat ion Details LastModified Time Do you use any illicit or recreational drugs? No Information not available 10/22/2022 What is your level of alcohol consumption? None Information not available 10/22/2022 Are you currently employed? No disabled [email or web address] Information not available 06/24/2023 Are you able to walk? YESASSIST charline walker Information not available 05/20/2023 Mental Status None recorded. Family History Relationship Description Onset Age of this Age Resolved Age Notes LastModified by Organization Details LastModified Time Paternal Grandfather Diabetes mellitus [email or web address] Not available 2022 13:14:14 Maternal Grandmother Hypertensive disorder marflin Not available 2022 13:14:14 Maternal Grandmother Heart disease marflin Not available 2022 13:14:14 Maternal Grandmother Diabetes mellitus marflin Not available 2022 13:14:14 Mother Hypertensive disorder marflin Not available 2022 13:14:14 Mother Kidney disease marflin Not available 2022 13:14:14 Father Hypertensive disorder marflin Not available 2022 13:14:14 Father Heart disease marflin Not available 2022 13:14:14 Father Diabetes mellitus marflin Not available 2022 13:14:14 Father Kidney disease marflin Not available 2022 13:14:14 Paternal Grandmother Diabetes mellitus marflin Not available 2022 13:14:14 Medical History Condition Response Bipolar Disease N Coronary Artery Disease N Gout N Seizure Disorder N Atrial Fibrillation N Thyroid Disease N Head Trauma/Injury N Hernia N Depression Y COPD N Anxiety Disorder Y Acid Reflux (GERD) N Cancer N Stroke N Skin Disorder N High Cholesterol N Liver Disease N Rheumatoid Arthritis N Headaches Y Fibromyalgia N Kidney Disease N Autoimmune Disease N Osteoarthritis Y Neurosurgery N DVT N Peptic Ulcer Disease N Anemia N Heart Attack (PA) N Diabetes Y Cardiomyopathy N Bleeding Disorder N CHF N AIDS/HIV N Inflammatory Bowel Disease N Asthma N Substance Abuse N Sleep Apnea N Hepatitis N Heart Disease N Pulmonary Embolism N Chronic Low Back Pain Y Hypertension N Osteoporosis Y Gynecological HistoryNo gynecological history recorded. Obstetrics History GPAL:G 0 P 0 0 0 0 Past Encounters Encounter ID Performer Location Encounter Start Date Encounter Closed Date Diagnosis/Indication Diagnosis SNOMED-CT Code Diagnosis ICD10 Code Diagnosis Note [id number] CLAUDIA MONTIEL MD [place] [address] [address] ,[facility] [address] [place] [address] 10/22/2022 12:34:49 10/22/2022 13:36:19 Lumbar spondylosis 258511662 M47.816 Lumbar radiculopathy 128 680416 M54.16 Long-term drug therapy 692935500 Z79.891 The urine sample is being sent for quantitati ve LCMS analysis of illicit drugs (Cocaine, Methamphet amine, Heroin, Fentanyl, THC, Synthetic Cannabinoi ds, Kratom, MDMA, PCP, and Synthetic Stimulants , Opiates (Codeine, Hydrocodon e, Hydromorph one, and Morphine), Oxycodone, Oxymorphon e, Methadone, Synthetic Opioids (Tramadol, Tapentadol , and Buprenorph ine), Benzodiaze pines (Alprazola m, Clonazepam , Lorazepam, Diazepam, Nordazepam , Oxazepam, and Temazepam) , Gabapentin , Pregabalin , Muscle Relaxants (Carisopro dol, Cyclobenza dion, and Meprobamat e), Ketamine, Nalaxone, and Amphetamin e, as this patient is being prescribed opioid medication s for the first time at this practice. The purpose of this analysis is to confirm the patients stated medication usage and to establish baseline medication and metabolite quantities , and to evaluate for use of medication s that are not prescribed or reported by the patient. [id number] Lonny Keane MD [facility] [address] [place] [address] 05/20/2023 14:23:40 05/20/2023 15:03:34 Long-term drug therapy [id number] Z79.899 Up to date Informed Consent and Opioid Agreement have been signed and incorporat ed into the chart. Patient has been provided written educationa l materials regarding potential adverse effects of nursing home opioid therapy MEDICAL INDICATION S: Pain has been refractory to repeated attempts at conservati ve management , is of a moderate to severe degree and an organic source is suspected. The medication prescribed will be used in conjuction with a comprehens [place] pain program to meet the establishe d goals. Urine drug screening is regularly performed to monitor compliance during active treatment for medication misuse or diversion. MAGNUS/OAR S has been reviewed and documented to assure compliance with dosing scheduling , pain agreement MY OVERALL IMPRESSION IS THAT THIS PATIENT IS BENEFITING FROM OPIOID THERAPY. Lumbar spondylosis 93382 0009 M47.816 Lumbar radiculopathy 128 110955 M54.16 [id number] Lonny Keane MD [facility] [address] [place] [address] 06/24/2023 09:43:59 06/24/2023 10:17:15 Long-term drug therapy [id number] Z79.899 Up to date Informed Consent and Opioid Agreement have been signed and incorporat ed into the chart. 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 The medication prescribed will be used in conjuction with a comprehens [place] pain program to meet the establishe d goals. Urine drug screening is regularly performed to monitor compliance during active treatment for medication misuse or diversion. MAGNUS/OAR S has been reviewed and documented to assure compliance with dosing scheduling , pain agreement MY OVERALL IMPRESSION IS THAT THIS PATIENT IS BENEFITING FROM OPIOID THERAPY. 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 REMIT PAYOR Kristen Amato 06/24/2023 2 [employer] (MEDICARE REPLACEMENT/AD VANTAGE - HMO) Kristen Amato [id number] Kristen Amato 06/27/2023 2 [place] CHO[place] FFS/TRADITIONA L Kristen Amato [id number] Kristen Amato 06/24/2023 1 [place] Kristen Amato [id number] Kristen Amato Notes Date Note Type Note Provider Name and Address Organization Details Recorded Time 10/22/2022 text/html Low back painReported bypatient.Onset:date of onset: (2014) Location:paraspinal: bilateral; buttock: bilateral; radiating down the bilateral lower extremity to the foot; BLE--L>R RLE---posteriorly to knee LLE--posteriorly to knee then laterally to left foot big toe Also complains of numbness, tingling and weakness Duration:varies throughout the day Context:started without cause Quality:aching; burning; stabbing; throbbing; sharp Pain IntensityModerate; current pain level: 6/10; average pain level: 6/10; worst pain level: 10/10 Alleviating Factors:opioids; neuropathic medications Aggravating Factors:standing; walking; lifting; twisting; bending/squatting; cold weather Associated Symptoms:no bowel incontinence; no urinary retention; no urinary incontinence; no perineal paresthesia/anesthes ia;weakness;numbness ;tingling;popping/cl icking Prior Imaging:MRI Lumbar Surgery:none Previous Injections:Injection s in past patient states made condition worse Previous physical therapy:completed all recommended PT visits (2019); No recent PT Chiro --2019 PT on low back 2019 Home exercises provided today. Functional Assessment of ADLsDifficulty bathing/grooming secondary to pain.;Difficulty completing rehab/pre vocational counselor secondary to pain.;Difficulty exercising on a regular basis secondary to pain.;Difficulty participating in recreation on a regular basis secondary to pain. Medications History:NSAIDs: (Mobic--ineffectiveN aproxen--effective); Muscle relaxants: (Flexeril--ineffecti ve Robaxin--effective); Neuropathics: (Gabapentin--effecti ve Lyrica--denies); Opioid pain medications: ([place]--upset stomach Oxycodone--efffectiv e) Prior Pain Management:yes: ([facility]--closed) Oswestry Disability Index (DORENE)Score/Date Completed: (10/22/2022 71%) Other Conservative Treatments:chiroprac tic treatments:; heat:; ice:; TENS Unit:Notes:Date: 10/22/2022ORT--2PHQ9 --0ODI--71% CLAUDIA MONTIEL MD [address] [place] [address], [address], [facility] 10/22/2022 13:44:08 05/20/2023 text/html Low back painReported bypatient.Onset:date of onset: (2014) Location:paraspinal: bilateral; buttock: bilateral; radiating down the bilateral lower extremity to the foot; BLE--L>R RLE---posteriorly to knee LLE--posteriorly to knee then laterally to left foot big toe Also complains of numbness, tingling and weakness Duration:varies throughout the day Context:started without cause Quality:aching; burning; stabbing; throbbing; sharp Pain IntensityModerate; current pain level: 6/10; average pain level: 6/10; worst pain level: 10/10 Alleviating Factors:opioids; neuropathic medications Aggravating Factors:standing; walking; lifting; twisting; bending/squatting; cold weather Associated Symptoms:no bowel incontinence; no urinary retention; no urinary incontinence; no perineal paresthesia/anesthes ia;weakness;numbness ;tingling;popping/cl icking Functional Assessment of ADLsDifficulty bathing/grooming secondary to pain.;Difficulty completing rehab/pre vocational counselor secondary to pain.;Difficulty exercising on a regular basis secondary to pain.;Difficulty participating in recreation on a regular basis secondary to pain. Prior Imaging:MRI Lumbar Surgery:none Interventional Treatment History:Injections in past patient states made condition worse Physical Therapy:completed all recommended PT visits (2019); No recent PT Chiro --2019 PT on low back 2019 Home exercises provided today. Medications History:NSAIDs: (Mobic--ineffectiveN aproxen--effective); Muscle relaxants: (Flexeril--ineffecti ve Robaxin--effective); Neuropathics: (Gabapentin--effecti ve Lyrica--denies); Opioid pain medications: ([place]ren--upset stomach Oxycodone--efffectiv e) Adverse Reactions:No nausea; No vomiting; No constipation Other Conservative Treatments:chiroprac tic treatments: ; heat: ; ice: ; TENS unit: Prior Pain Management:yes: ([facility]--closed) Oswestry Disability Index (DORENE)Score/Date Completed: (10/22/2022 71%)Notes:Date: 10/22/2022ORT--2PHQ9 --0ODI--71% Lonny Keane MD [address] [place] [address], [place], [address], [facility] 05/20/2023 15:34:17 06/24/2023 text/html Low back painReported bypatient.Onset:date of onset: (2014) Location:paraspinal: bilateral; buttock: bilateral; radiating down the bilateral lower extremity to the foot; BLE--L>R RLE---posteriorly to knee LLE--posteriorly to knee then laterally to left foot big toe Also complains of numbness, tingling and weakness Duration:varies throughout the day Context:started without cause Quality:aching; burning; stabbing; throbbing; sharp Pain IntensityModerate; current pain level: 8/10; average pain level: 6/10; worst pain level: 10/10 Alleviating Factors:opioids; neuropathic medications Aggravating Factors:standing; walking; lifting; twisting; bending/squatting; cold weather Associated Symptoms:no bowel incontinence; no urinary retention; no urinary incontinence; no perineal paresthesia/anesthes ia;weakness;numbness ;tingling;popping/cl icking Functional Assessment of ADLsDifficulty bathing/grooming secondary to pain.;Difficulty completing rehab/pre vocational counselor secondary to pain.;Difficulty exercising on a regular basis secondary to pain.;Difficulty participating in recreation on a regular basis secondary to pain. Prior Imaging:MRI Lumbar Surgery:none Interventional Treatment History:Injections in past patient states made condition worse Physical Therapy:completed all recommended PT visits (2019); No recent PT Chiro --2019 PT on low back 2019 Home exercises provided today. Current Analgesics:Hydrocodo ne/APAP effective (10/325MG); Gabapentin effective (800MG); Reported pain relief- 40% for 5 hours; 06/24/2023-LAST DOSE WAS LAST NIGHT. Medications History:NSAIDs: (Mobic--ineffectiveN aproxen--effective); Muscle relaxants: (Flexeril--ineffecti ve Robaxin--effective); Neuropathics: (Gabapentin--effecti ve Lyrica--denies); Opioid pain medications: ([place]--upset stomach Oxycodone--efffectiv e) Adverse Reactions:No nausea; No vomiting; No constipation Other Conservative Treatments:chiroprac tic treatments: not effective; heat: not effective; ice: not effective; TENS unit: not effective; activity modification: not effective Prior Pain Management:yes: ([facility]--closed) Oswestry Disability Index (DORENE)Score/Date Completed: (10/22/2022 71%)Notes:Date: 10/22/2022ORT--2PHQ9 --0ODI--71% Lonny Keane MD [address] [place] [address], [address], [facility] 06/24/2023 10:35:26 OBGyn Episode No OBEpisode recorded.
[2025-01-13] MEDS: SODIUM CHLORIDE 0.9% 10ML SYR (RAD ONLY) 10 ML IV (18:02)
[2025-01-13] MEDS: GADOTERIDOL INJ 20ML SYRINGE 18 ML IV (18:02)
== END 2025-01-13 23:59 | disposition home or self-care (01) ==
LOC: RAD 17:15
PROVIDERS: PCP Family Medicine; Visit Provider Family Medicine
DX: M47.816 Spondylosis without myelopathy or radiculopathy, lumbar region (principal); M48.061 Spinal stenosis, lumbar region without neurogenic claudication; M99.73 Connective tissue and disc stenosis of intervertebral foramina of lumbar region; M25.70 Osteophyte, unspecified joint; R90.89 Other abnormal findings on diagnostic imaging of central nervous system
CPT/HCPCS: 72158; A9576

== ENCOUNTER 2025-02-04 14:24 | Outpatient (CLI) | payer MEDICARE, MEDICAID, SELFPAY ==
--- OUTSIDE RECORDS SUMMARY | 2022-01-16 10:30 | XMS_ITS | Continuity of Care Document ---
Author Organization [facility] Address [address] [place] [address] Phone Care Team Providers Care Experimental Display Builder Name Role Phone Danis Petit MD Unavailable Unavailable Allergies, Adverse Reactions, Alerts Substance Reaction Status Criticality Sulfa (Sulfonamide Antibiotics) DifficultyBreathing, I tchyEyes, Active No Information Medications Medication Instructions Dosage Effective Dates (start - stop) Status Comments topiramate 25 mg tablet - Ac tive buspirone 10 mg tablet - Act namita ergocalciferol (vitamin D2) 1,250 mcg (50,000 unit) capsule - Active venlafaxine ER 150 mg capsule,extended release 24 hr - Active naproxen 500 mg tablet - Act namita methocarbamol 750 mg tablet - Active diclofenac 1 % topical gel - Active oxycodone-acetaminophen 7.5 mg-325 mg tablet - Active gabapentin 800 mg tablet - Active cetirizine 10 mg tablet TAKE 1 TABLET BY MOUTH EVERY DAY - Active oxycodone-acetaminophen 10 mg-325 mg tablet - Active escitalopram 10 mg tablet - Active montelukast 10 mg tablet - Active gabapentin 600 mg tablet - Active pantoprazole 40 mg tablet,delayed release TAKE ONE TABLET BY MOUTH ONCE DAILY - Active buspirone 15 mg tablet TAKE ONE TABLET B Y MOUTH TWO TIMES DAILY - Active prednisone 10 mg tablet [...] Provider Providers Copied on Encounter Office/outpat ient visit,[facility], [address] [place], [address], [place] tel:[phone] 700 [facility] Chad Low back pain, unspecified 2 Damaso Moscoso. [facility], [address], . tel:[phone] Referring Provider: Danis Petit, [facility] [place], [address]. tel:[phone] Family History Family Member Type Diagnosis Age [...] type Covered libertarian ID Authoriza tishmuel(s) Medicare [address] GE[place] [id number] Wellcare Medicaid CI [id number] Social History Type Description Quantity Date Captured [...]
--- OUTSIDE RECORDS SUMMARY | 2025-02-04 14:25 | XMS_ITS | Clinical Summary ---
Author Organization [facility] Address [address] [place] [phone] Phone Care Team Providers Care Automatic Teller Machine Servicer Name Role Phone Keaton COOLEYGabriella Primary Care Physician [phone] Conditions or Problems Problem Name Problem Code Onset Date Status Entry Date Provider Comment Standard Description Annotate NASOPHARYNG ITIS 71906308 (SNOMED CT) 08/25 Inactive 08/25 Susan Garcia APRN Nasopharyngiti s CBC, abnormal 361332463 (SNOMED CT) 09/12 Resolved 09/12 Susan Garcia APRN Full blood count outside reference range Disturbance of skin sensation 23254041 (SNOMED CT) 09/12 Resolved 09/12 Susan Garcia APRN Skin sensation disturbance Ovarian cyst, left 82358538 (SNOMED CT) 09/18 Active 07/28 Susan Garcia APRN Cyst of ovary HEMORRHAGIC CYST Disturbance of skin sensation 64367094 (SNOMED CT) 09/12 Removed 09/12 Susan Garcia APRN Skin sensation disturbance CBC, abnormal 547033829 (SNOMED CT) 09/12 Removed 09/12 Susan Garcia APRN Full blood count outside reference range Menorrhagia 481977562 (SNOMED CT) 09/12 Active 09/12 Susan Garcia APRN Menorrhagia Breast mass, right 86368324 (SNOMED CT) 07/31 Active 07/31 Susan Garcia APRN Breast lump FATIGUE 17100215 (SNOMED CT) 07/31 Active 07/31 Susan Garcia APRN Fatigue HEALTH SCREENING 91611923 (SNOMED CT) 07/31 Inactive 07/31 Susan Garcia APRN Specialized medical examination Medications Medication Instructions Start Date Stop Date Generic Name [facility] Provider BARRY ARSHAD 100 MG ORAL CAPSULE TAKE 1 TO 2 CAPS BY MOUTH EVERY 8 HOURS NEEDED FOR COUGH 9 BENZONATATE [id number] Susan Garcia APRN LORATADINE 10 MG TABS TAKE 1 TABLET BY MOUTH 1 TIME A DAY NEEDED FOR ALLERGIES 9 LORATADINE 33502956090 Susan Garcia APRN FLUTICASONE PROPIONATE 50 MCG/ACT SUSP 2 SPRAYS IN EACH NOSTRIL 1 TIME A DAY 9 FLUTICASONE PROPIONATE 92159244812 Suasn Garcia APRN Medications Administered No information available. [...] in Blood ABS NEUTROPH 3800 CELLS/UL 10*3/uL 5416-5126 N Neutrophils [#/volume] in Blood PLATELETK/UL 213 [...] Date US PELVIS DANGELO Ultrasound Pelvis 2 CPT-64053 Strep Screen 69493 9 PU Pelvic Ultrasound [facility]99 [facility] # CBC with Differential 2 927 [facility] # B12 4021 [facility] # Estradiol [facility] 24481 CA 125 CPT-44847 Fluvirin Preservativ e Free Intramuscular Suspension CPT-04009 Ix admin via [place] or P O with counseling by physician [facility] # CBC with Differential 2 59874 [facility] # CMP 4 20020 [facility] # Lipid Panel 39823 [facility] # TSH to Free T-4 [...]
--- OUTSIDE RECORDS SUMMARY | 2025-02-04 14:26 | XMS_ITS | Encounter Summary ---
Author Organization [place] [address] Care Team Providers Care Sql Etl Developer Name Role Phone Jesse Mathias MD Primary Care Provider [phone] Reason for Visit * Reason Comments Medication Refill Encounter Details Date Type Department Care Team (Late st Contact Info) Description 12/07/2024 Refill [facility] [address] [place] [address] Jesse Mathias MD [address] [place] [address] [place] [address] Medication Refill Social History Tobacco Use Types Packs/Day Years Used Date Smoking Tobacco: Every Day Cigarettes 0.5 27.5 Started: 07/28/1997 Smokeless Tobacco: Never Alcohol Use Standard Drinks/Week Comments No 0 (1 standard drink = 0.6 oz pur e alcohol) AUDIT-C Answer Date Recorded Q1: How often do you have a drink containing alc ohol? Never 01/30/2021 Average Number of Drinks Not on file 021 Q3: How often do you have si x or more drinks on one occasion? Never 01/30/2021 PHQ-2 Answer Date Recorded PHQ-2 Total Score 0 11/15/2022 Sexually Active Control Partners Comments Yes Other-see comments Male tubal Comments No Sex and Gender Information Value Date Recorded Sex Assigned at Not on file Legal Sex Female 3:40 AM EDT Gender Identity Not on file Sexual Orientation Not on file documented as of this encounter Functional Status * Is the person deaf or does he/she have serious difficulty hearing? Answer Date of Assessment Author No 11/15/2022 4:27 PM EDT Mariama Carlisle MA * Is the person blind or does he/she have serious difficulty seeing even when wearing glasses? Answer Date of Assessment Author No 11/15/2022 4:27 PM EDMariama Hernandez MA * Does this person have serious difficulty walking or climbing stairs? Answer Date of Assessment Author No 11/15/2022 4:27 PM EDMariama Hernandez MA * Does this person have difficulty dressing or bathing? Answer Date of Assessment Author No 11/15/2022 4:27 PM EDT Mariama Carlisle MA * Because of a physical, mental or emotional condition, does this person have difficulty doing errands alone such as visiting a doctor's office or shopping? Answer Date of Assessment Author No 11/15/2022 4:27 PM Mariama Eason MA documented as of this encounter Mental Status * Because of a physical, mental or emotional condition, does this person have serious difficulty concentrating, remembering or making decisions? Answer Entry Date Author No 11/15/2022 4:27 PM Mariama Eason MA documented in this encounter Ordered Prescriptions Prescription Sig Dispense Quantity Refills Last Filled Start Date End Date pantoprazole (PROTONIX) 40 mg Oral Tablet, Delayed Release (E.C.)Indications: Gastroesophageal reflux disease without esophagitis TAKE 1 TABLET BY MOUTH DAILY 30 Tablet 12/08/2024 venlafaxine (EFFEXOR-XR) 75 mg Oral Capsule, Sust. Release 24 hrIndications:Curr ent moderate episode of major depressive disorder without prior episode (HCC) Take 1 Capsule by mouth daily. 30 Capsule 12/08/2024 venlafaxine (EFFEXOR-XR) 150 mg Oral Capsule, Sust. Release 24 hr Take 1 Capsule by mouth daily. 30 Capsule 12/08/2024 busPIRone (BUSPAR) 30 mg Oral TabletIndications: Current moderate episode of major depressive disorder without prior episode (HCC) Take 1 Tablet by mouth 2 times daily. 60 Tablet 12/08/2024 topiramate (TOPAMAX) 25 mg Oral TabletIndications: Chronic daily headache Take 1 Tablet by mouth nightly. 30 Tablet 12/08/2024 montelukast (SINGULAIR) 10 mg Oral TabletIndications: Seasonal allergic rhinitis, unspecified trigger TAKE 1 TABLET BY MOUTH NIGHTLY 30 Tablet 12/08/2024 cetirizine (ZYRTEC) 10 mg Oral TabletIndications: Seasonal allergic rhinitis, unspecified trigger TAKE 1 TABLET BY MOUTH DAILY 4 Tablet 12/08/2024 documented in this encounter Miscellaneous Notes * Telephone Encounter - Ida Ramírez CPhT - 12/08/2024 11:33 AM EDT Buspirone There is no CRS protocol for this medication. Cetirizine There is no CRS protocol for this medication. Montelukast Future Visit: N/A Last Assessed Visit: N/A Follow-Up Date: N/A Appointment protocol failed. No georgi supply sent to pharmacy. Routed to Office. Pantoprazole Future Visit: N/A Last Assessed Visit: 11/13/2023 Follow-Up Date: 11/12/2024 Appointment protocol failed. One georgi supply sent to pharmacy. Routed to Office. Topiramate There is no CRS protocol for this medication. Venlafaxine 75mg Refill request deferred to the office: Medication list includes multiple doses or duplicate therapy. Please update medication list. Venlafaxine 150mg Refill request deferred to the office: Medication list includes multiple doses or duplicate therapy. Please update medication list. documented in this encounter Plan of Treatment Not on file documented as of this encounter Goals Goal Patient Goal Type Associated Problems Recent Progress Patient-Stated? Author Maintain a healthy diet, exercise regularly and maintain an ideal body weight General Radha Mesa CMA Stay Tobacco Free Lifestyle Radha Mesa CMA documented as of this encounter Visit Diagnoses Diagnosis Seasonal allergic rhinitis, unspecified trigger Chronic daily headache Headache Current moderate episode of major depressive disorder without prior episode (HCC) Gastroesophageal reflux disease without esophagitis Esophageal reflux documented in this encounter Discontinued Medications Medication Sig Discontinue Reason Start Date End Da te pantoprazole (PROTONIX) 40 mg Oral Tablet, Delayed Release (E.C.)Indications:Gastro esophageal reflux disease without esophagitis Take 1 Tablet by mouth daily. 11/13/2023 12/08/2024 busPIRone (BUSPAR) 30 mg Oral TabletIndications:Lilly espinosa moderate episode of major depressive disorder without prior episode (HCC) Take 1 Tablet by mouth 2 times daily. 11/13/2023 12/08/2024 venlafaxine (EFFEXOR-XR) 75 mg Oral Capsule, Sust. Release 24 hrIndications:Current moderate episode of major depressive disorder without prior episode (HCC) Take 1 Capsule by mouth daily. 11/13/2023 12/08/2024 venlafaxine (EFFEXOR-XR) 150 mg Oral Capsule, Sust. Release 24 hr Take 1 Capsule by mouth daily. 11/13/2023 12/08/2024 topiramate (TOPAMAX) 25 mg Oral TabletIndications:Chroni c daily headache Take 1 Tablet by mouth nightly. 12/10/2023 12/08/2024 cetirizine (ZYRTEC) 10 mg Oral TabletIndications:Season al allergic rhinitis, unspecified trigger Take 1 Tablet by mouth daily. 07/09/2024 12/08/2024 montelukast (SINGULAIR) 10 mg Oral TabletIndications:Season al allergic rhinitis, unspecified trigger TAKE 1 TABLET BY MOUTH NIGHTLY 10/04/2024 12/08/2024 documented as of this encounter Care Teams Sql Etl Developer Relationship Specialty Start Date End Date Jesse Mathias MD [address] [place] [address] [place] [address] PCP - General Family Medicine 02/08/20 documented as of this encounter
--- OUTSIDE RECORDS SUMMARY | 2025-02-04 14:26 | XMS_ITS | Clinical Summary ---
Author Organization [facility] [[email or web address]] OWEN GRANT Address [address] [place] [phone] Phone Care Team Providers Care Pain Management Nurse Practitioner Name Role Phone Jesse Mathias MD Primary Care Provider [phone] Allergies Active Allergy Reactions Criticality Noted Date Comments Adhesive Itching Aspirin Nausea Only 11/06/2014 Septra I.V. Anaphylaxis High 10/22/2013 Codeine Nausea Only 11/06/2014 Sulfa (Sulfonamide Antibiotics) Anaphylaxis High Medications nicotine (NICODERM CQ) 21 mg/24 hr TD Patch 24 hrIndications:Cig arette nicotine dependence with other nicotine-induced disorder Place 1 Patch onto the skin every 24 hours. 30 Patch 1 2 Active Additional Information Patient not taking.Reported on 11/13/2023 oxyCODONE-acetami nophen (PERCOCET) 7.5-325 mg Oral TabletIndications :Chronic left-sided low back pain with left-sided sciatica,Lumbar spondylosis,Lumba r radiculopathy,Hig h risk medications (not anticoagulants) long-term use,Medication management Take 1 Tablet by mouth every 8 hours as needed for Chronic Pain (G89.29). 90 Tablet 3 Active Additional Information Patient not taking.Reported on 11/13/2023 fUROsemide (LASIX) 20 mg Oral TabletIndications :Leg swelling Take 1 Tablet by mouth daily. 7 Tablet 2 3 Active gabapentin (NEURONTIN) 800 mg Oral TabletIndications :Chronic left-sided low back pain with left-sided sciatica,Lumbar spondylosis,Lumba r radiculopathy Take 1 Tablet by mouth 3 times daily. 90 Tablet 3 Active Additional Information Patient not taking.Reported on 11/13/2023 amLODIPine (NORVASC) 5 mg Oral TabletIndications :Raynaud's phenomenon without gangrene Take 1 Tablet by mouth daily. 30 Tablet 4 Active methocarbamoL (ROBAXIN) 750 mg Oral TabletIndications :Lumbar spondylosis,Lumba r radiculopathy Take 1 Tablet by mouth 4 times daily. 360 Tablet 3 4 Active lidocaine (LIDODERM) 5 % Top Adhesive Patch, MedicatedIndicati ons:Lumbar spondylosis,Lumba r radiculopathy Place 1 Patch onto the skin every 12 hours. 60 Patch 2 4 Active diclofenac (VOLTAREN) 1 % Top Gel Apply 2 g topically 2 times daily. 100 g 5 4 Active fluticasone propionate (FLONASE) 50 mcg/actuation Nasl Ramona, SuspensionIndicat ions:Seasonal allergic rhinitis, unspecified trigger Use 1 Ramona in each nostril once daily. 16 g 2 4 Active naproxen (NAPROSYN) 500 mg Oral TabletIndications :Lumbar spondylosis,Lumba r radiculopathy Take 1 Tablet by mouth twice daily. 60 Tablet 2 4 Active ondansetron (ZOFRAN-ODT) 4 mg Oral Tablet, Rapid DissolveIndicatio ns:Nausea Place 1 Tablet on the tongue every 4 hours. 60 Tablet 2 5 Active hydrOXYzine (ATARAX) 25 mg Oral TabletIndications :Mood disorder Take 1 Tablet by mouth 3 times daily as needed for anxiety. 90 Tablet 2 5 Active ergocalciferol (DRISDOL) 1,250 mcg (50,000 unit) Oral CapsuleIndication s:Vitamin D deficiency TAKE 1 CAPSULE BY MOUTH ONCE WEEKLY 12 Capsule 5 Active cetirizine (ZYRTEC) 10 mg Oral TabletIndications :Seasonal allergic rhinitis, unspecified trigger TAKE 1 TABLET BY MOUTH DAILY 4 Tablet 5 Active montelukast (SINGULAIR) 10 mg Oral TabletIndications :Seasonal allergic rhinitis, unspecified trigger TAKE 1 TABLET BY MOUTH NIGHTLY 30 Tablet 5 Active topiramate (TOPAMAX) 25 mg Oral TabletIndications :Chronic daily headache Take 1 Tablet by mouth nightly. 30 Tablet 5 Active busPIRone (BUSPAR) 30 mg Oral TabletIndications :Current moderate episode of major depressive disorder without prior episode (HCC) Take 1 Tablet by mouth 2 times daily. 60 Tablet 5 Active venlafaxine (EFFEXOR-XR) 150 mg Oral Capsule, Sust. Release 24 hr Take 1 Capsule by mouth daily. 30 Capsule 5 Active venlafaxine (EFFEXOR-XR) 75 mg Oral Capsule, Sust. Release 24 hrIndications:Cur rent moderate episode of major depressive disorder without prior episode (HCC) Take 1 Capsule by mouth daily. 30 Capsule 5 Active pantoprazole (PROTONIX) 40 mg Oral Tablet, Delayed Release (E.C.)Indications :Gastroesophageal reflux disease without esophagitis TAKE 1 TABLET BY MOUTH DAILY 30 Tablet 5 Active Active Problems Patient Care Coordination No te Formatting of this note migh t be different from the original. NO INFORMATION IS TO BE GIVEN TO ANYONE PER PT'S REQUEST! jone as expected 12/10/17 [id number] Problem Noted Date Diagnosed Date Mood disorder 02/15/2022 Prediabetes 11/20/2021 High risk medications (not anticoagulants) long- term use 12/28/2020 Overview (06/14/2022): 12/28/2020 Previous pain medication office ([facility]) closed abruptly. -Jone #[id number] shows consistent prescription medications for pain of oxycodone 10/325 mg 5 times daily and Gabapentin 600 mg 3 times daily. 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 We will continue to follow her until she is able to reestablish with them Chronic left-sided low back pain with left-sided sciatica 05/11/2019 Right thyroid nodule 04/27/2019 Overview (03/30/2020): Relatively stable in size with benign features on ultrasound Repeat ultrasound March 2022 Current moderate episode of major depressive disorder without prior episode 01/15/2018 Pain of cervical spine 12/11/2017 Lumbar spondylosis 06/17/2017 Lumbar radiculopathy 06/17/2017 Herniation of nucleus pulposus 06/17/2017 Non morbid obesity 08/30/2016 DDD (degenerative disc disease), lumbar 01/03/20 15 Sciatica 11/21/2014 Nasopharyngitis 08/25/2014 Ovarian cyst, left 07/18/2014 Menorrhagia 07/12/2014 Breast mass, right 05/31/2014 Encounters Date Type Department Care Team Description 01/26/2025 Refill [facility] [address] [place] [phone] Jesse Mathias MD Medication Refill 12/07/2024 Refill [facility] [address] [place] [phone] Jesse Mathias MD Medication Refill from Last 3 Months Immunizations Immunization Administration Dates Next Due Influenza Seasonal Injectable PF 05/31/2014 Influenza Vaccine Quadrivalent 06/10/2017 Influenza Virus Vaccine Quad rivalant, Flublok 04/16/2022,04/08/2019,06/05/2018 Pneumococcal Conjugate Vaccine 20 Valent 024 Surgical History Surgery Date Site/Laterality Comments TUBAL LIGATION Medical History Medical History Date Comments Cyst, breast Allergic state asprin, codine, bactrum Anxiety I have been gett ing real anxious lately Arthritis Arthritis in my lumbar Encounter for blood transfusion When I was new born Depression Chronic back pain Thyroid nodule Family History Medical History Relation Name Comments Depression Brother Diabetes Father Heart Attack Father Heart Disease Father Kidney Disease Father Vision Loss Father Heart Disease Maternal Grandfather Cancer Maternal Grandmother ovarian Diabetes Maternal Grandmother Heart Disease Maternal Grandmother Ovarian Cancer Maternal Grandmother Aneurysm Mother Breast Cancer Mother Cancer Mother kidney, breast Depression Mother Other Mother Brain Aneurysm Diabetes Paternal Grandfather Diabetes Paternal Grandmother Cancer Sister 1 uterine/uterine Depression Sister 2 Relation Name Status Comments Brother Father Maternal Grandfather Maternal Grandmother Mother Alive Paternal Grandfather Paternal Grandmother Sister 1 Sister 2 Social History Tobacco Use Types Packs/Day Years Used Date Smoking Tobacco: Every Day Cigarettes 0.5 27.5 Started: 07/28/1997 Smokeless Tobacco: Never Tobacco Cessation:Ready to Q uit: Not Asked; Counseling Given: Not Answered Alcohol Use Standard Drinks/Week Comments No 0 [...] on file Sexual Orientation Not on file Obstetrics History Last Filed Vital Signs Vital Sign Reading Time Taken Comments Blood Pressure 151/70 08/16/2024 6:38 PM EST Pulse 88 08/16/2024 6:38 PM EST Temperature 36.8 C (98.2 F) 08/16/2024 6:38 PM EST Respiratory Rate 18 08/16/2024 6:38 PM EST Oxygen Saturation 100% 08/16/2024 6:38 PM EST Inhaled Oxygen Concentration - - Weight 93.4 kg (206 lb) 11/13/2023 2:49 PM EDT Height 154.9 cm (5' 1 ) 11/13/2023 2:49 PM EDT Body Mass Index 38.92 11/13/2023 2:49 PM EDT Plan of Treatment Health Maintenance Due Date Last Done Comments DTaP/TDaP/Td (1 - Tdap) 1996 Hepatitis B Vaccine (1 of 3 - 19+ 3-dose series) 1996 HPV/Pap Cotest 2007 Breast Cancer Screening 2017 06/01/2014 Cervical Cancer Screening 06/08/2017 Pap Smear 06/08/2017 06/08/2014 Cologuard 2022 Colon Cancer Screening 2022 Colonoscopy 2022 FIT 2022 Sigmoidoscopy 2022 Virtual Colonography 2022 Wellness Exam Medicare 11/16/2023 11/15/2022, 2021 COVID-19 Vaccine ( season) 2024 Influenza Vaccine (#1) 2025 2, 04/08/2019, 06/05/2018, Additional history exists Pneumococcal Vaccine 0-49 Completed 11/13/2023 Meningococcal B Vaccine Aged Out No l onger eligible based on patient's age to complete this topic Goals Goal Patient Goal Type Associated Problems Recent Progress Patient-Stated? Author Maintain a healthy diet, exercise regularly and maintain an ideal body weight General Radha Mesa CMA Stay Tobacco Free Lifestyle Radha Mesa CMA Procedures Procedure Name Priority Date/Time Associated Diagnosis Comments HOT KNIFE FOXING CUTTER CYTOLOGY REPORT Routine 06/08/2014 4 :42 AM EST MM MAMMO DIGITAL DIAGNOSTIC W CAD BILAT Routine 06/01/2014 2:19 PM EST Breast mass, right from Last 3 Months or Most Recently Relevant to Health Maintenance Results * HOT KNIFE FOXING CUTTER CYTOLOGY REPORT (06/08/2014 4:42 AM EST) Ore Grader Cytology Report PATIENT NAME:RJ AMATO Ore Grader Cytology Report Accession Number Collected Date/Time Received Date/Time [id number] 06/08/14 04:42 EST 06/09/14 06:53 EST GY Specimen Source Specimen Vag/Cerv/Endocx?: Cervical/Endocervi david Statement of Adequacy Satisfactory for Evaluation. Transformation Zone Absent. Diagnosis NEGATIVE FOR INTRAEPITHELIAL LESION OR MALIGNANCY. Comment Note: Concurrent High-Risk HPV DNA testing is NEGATIVE. The Pap Smear is a screening test that aids in the detection of cervical cancer and cancer precursors. Both false positive and false negative results can occur. The test should be used at regular intervals, and positive results should be confirmed before definitive therapy. Processed using the ThinPrep Sewing Pattern Layout Technician automated cytology screening device (Reflektion). Grain Broker: DIXIE 06/14/2014 Completed by: STERLING Bey (Electronically signed by) 06/14/2014 [facility] 06/08/2014 4:42 AM EST [facility] PATHOLOGY ORDERABLES Final Result [facility] [address] [place] [address] * MM MAMMO DIGITAL DIAGNOSTIC W CAD BILAT (06/01/2014 2:19 PM EST) Anatomical Region Laterality Modality Breast Bilateral Mammography 06/02/2014 7:27 AM EST Impressions 06/02/2014 4:08 PM EST : Incomplete-need additional imaging evaluation ([id number]) ~ RECOMMENDATION: Ultrasound of both breasts. This ultrasound examination was performed on 06-01-14 and will be reported separately. ~ * The patient with a palpable abnormality, unexplained by breast imaging, should be managed on clinical basis by the attending physician. * Breast imaging has a false negative rate of 15%. * The patient was notified by mail of the results of this examination. *The patient's information was entered into a reminder system with a target due date for the next mammogram. The mammogram was reviewed by a Radiologist and CAD. Narrative 06/02/2014 4:08 PM EST Procedure:MM MAMMO DIGITAL DIAGNOSTIC W CAD BILAT ~ Reason for exam: clinical finding. Indicated problem(s): lump or thickening in both breasts. ~ MM MAMMO DIGITAL DIAG CAD BILAT Bilateral CC and MLO view(s) were taken. BILATERAL DIAGNOSTIC DIGITAL MAMMOGRAM 06-01-14: ~ CLINICAL INDICATION: The patient is a 39-year-old female with a history of bilateral breast lumps. The patient underwent an excision of a palpable right breast mass in the ER in April of 2014. ~ COMPARISON: No priors are available. ~ FINDINGS: There are scattered fibroglandular densities throughout both breasts. There are BBs overlying the right breast at 11 o'clock and 6 o'clock, marking the sites of palpable lumps. An addition BB overlies the left breast at the 8 to 9 o'clock position, marking the site of a palpable lump. There is hazy increased density of the left axilla compared to the right side. There are no suspicious masses, microcalcifications or areas of architectural distortion in either breasts. ~ Procedure Note Marcella Burns MD - 06/02/2014 Procedure:MM MAMMO DIGITAL DIAGNOSTIC W CAD BILAT ~ Reason for exam: clinical finding. Indicated problem(s): lump or thickening in both breasts. ~ MM MAMMO DIGITAL DIAG CAD BILAT Bilateral CC and MLO view(s) were taken. BILATERAL DIAGNOSTIC DIGITAL MAMMOGRAM 06-01-14: ~ CLINICAL INDICATION: The patient is a 39-year-old female with ahistory of bilateral breast lumps. The patient underwent an excision of a palpable right breast mass in the ER in April of 2014. ~ COMPARISON: No priors are available. ~ FINDINGS: There are scattered fibroglandular densities throughout both breasts. There are BBs overlying the right breast at 11 o'clock and 6 o'clock, marking the sites of palpable lumps. An addition BB overliesthe left breast at the 8 to 9 o'clock position, marking the site of apalpable lump. There is hazy increased density of the left axilla compared tothe right side. There are no suspicious masses, microcalcifications orareas of architectural distortion in either breasts. ~ IMPRESSION: Incomplete-need additional imaging evaluation ([id number]) ~ RECOMMENDATION: Ultrasound of both breasts. This ultrasound examination was performedon 06-01-14 and will be reported separately. ~ * The patient with a palpable abnormality, unexplained by breast imaging, should be managed on clinical basis by the attending physician. * Breast imaging has a false negative rate of 15%. * The patient was notified by mail of the results of this examination. *The patient's information was entered into a reminder system with atarget due date for the next mammogram. The mammogram was reviewed by a Radiologist and CAD. Bonnie Collins APRN [facility] MAMMOGRAPHY ORDE RABNATHALY Final Result from Last 3 Months or Most Recently Relevant to Health Maintenance Insurance [place] [address] MEDICAID [place] * Guarantor: RJ AMATO Account Type Relation to Patient Date of Phone Billing Address [facility] Personal Family Account 1975 ([place]) [address] [place] [address] [place] [address] MEDICAID [place] Care Teams Pain Management Nurse Practitioner Relationship Specialty Start Date End Date Jesse Mathias MD [address] [place] [address] [place] [address] PCP - General Family Medicine 02/08/20
--- OUTSIDE RECORDS SUMMARY | 2025-02-04 14:26 | XMS_ITS | Encounter Summary ---
Author Organization [facility] [place] [address] Care Team Providers Care Cook 3 Pastry Name Role Phone Jesse Mathias MD Primary Care Provider [phone] Reason for Visit * Reason Comments Medication Refill Encounter Details Date Type Department Care Team (Late st Contact Info) Description 01/26/2025 Refill [facility] [address] [place] [address] Jesse Mathias MD [address] [place] [address] [place] [address] Medication Refill Social History Tobacco Use Types [...] 4:27 PM EDT Mariama Carlisle MA * Does this person have serious difficulty walking or climbing stairs? Answer Date of Assessment Author No 11/15/2022 4:27 PM EDT Mariama Carlisle MA * Does this person have difficulty dressing or bathing? Answer Date of Assessment Author No 11/15/2022 4:27 PM EDT Mariama Carlisle MA * Because of a physical, mental or emotional condition, does this person have difficulty doing errands alone such as visiting a doctor's office or shopping? Answer Date of Assessment Author No 11/15/2022 4:27 PM EDT Mariama Carlisle MA documented as of this encounter Mental Status * Because of a physical, mental or emotional condition, does this person have serious difficulty concentrating, remembering or making decisions? Answer Entry Date Author No 11/15/2022 4:27 PM EDT Mariama Carlisle MA documented in this encounter Miscellaneous Notes * Telephone Encounter - Princess Rutledge CPhT - 01/27/2025 1:11 PM EDT Buspirone There is no CRS protocol for this medication. Montelukast Patient has not had an office visit for any reason in >13 months (395 days). Lab tests needed, if any: NONE Defer to office. Pantoprazole Patient has not had an office visit for any reason in >13 months (395 days). Lab tests needed, if any: NONE Defer to office. Topiramate There is no CRS protocol for this medication. Venlafaxine 150 Refill request deferred to the office: Medication list includes multiple doses or duplicate therapy. Please update medication list. Venlafaxine 75 Refill request deferred to the office: Medication [...] as of this encounter Visit Diagnoses Diagnosis Current moderate episode of major depressive disorder without prior episode (HCC) Chronic daily headache Headache Seasonal allergic rhinitis, unspecified trigger Gastroesophageal reflux disease without esophagitis Esophageal reflux documented in this encounter Care Teams Cook 3 Pastry Relationship Specialty Start Date End Date Jesse Mathias MD [address] [place] [address] [place] [address] PCP - General Family Medicine 02/08/20 documented as of this encounter
--- OUTSIDE RECORDS SUMMARY | 2025-02-04 14:27 | XMS_ITS | Data Portability ---
Author Organization [facility], [facility] Address [address] [place] [address] Care Team Providers Care House Wrecker Name Role Phone TANISHA RENEE Primary Care Provider Assessment Encounter Date Assessment Date Assessment LastModified by Organization Details LastModified Time 10/22/2022 10/22/2022 HPI: This is a 47-year-old female with neck and low back pain She has chronic neck and low back pain. Has been seen in the past at a pain clinic in [facility]. Denies any illicit drug use, incontinence, or [...] to not be a surgical candidate at [facility]. Anticoagulants: None PMHx: None INJ Hx: Multiple lumbar injections PSHx/Surgical Evaluation: Not a surgical candidate per evaluation by [facility] IMAGING: MRI requested The [...] back, exercise program today. We will prescribe Rotan 10 mg 3 times daily as well as gabapentin 800 mg 3 times daily. I will have her follow-up in 1 month for reassessment. We will request the records from [facility] as well as her MRI. Pending results, recommend TELMA. If she is not a surgical candidate and does not derive significant benefit from her injection therapy, consider [facility]CS External records were reviewed and discussed as above, including imaging, clinical notes, and relevant labs. Much of this encounter is an electronic business center representative/[place] slation of spoken language to printed text. [...] office previously. She is a transfer from [facility]. States that she transferred here due to not being able to get a ride down to [place]. She lives in [place] and she reports that it is too far for her to drive. Looks like at that time she was seeing Dr. Burger undergoing work-up and treatment for mainly low [...] combination of hydrocodone and gabapentin to Dr. Burger's office. Does not feel that this was a sufficient quality due to the severity of her spine. Looks like she used to see [facility] for pain and was on high-dose opiate [...] in her spine RF: Prior PM: Yes, [facility] for pain Smoker: Currently 1 pack/day smoker [...] Much of this encounter is an electronic business center representative/[place] slation of spoken language to printed text. The electronic translation of spoken language may permit erroneous or at times nonsensical words of phrases to be inadvertently transcribed; Although I have reviewed the note for such errors, some may still exist. [email or web address] Not available 05/20/2023 15:32:58 06/24/2023 06/24/2023 48-year-old fema le follow-up for chronic back and leg pain along with multisite pain issues including neck and arms, multiple joints, thoracic. She uses a walker secondary to her diffuse pain. Originally seen in [place]. First seen by me in April. At that time she reports that she had not had any of her medication in multiple months secondary to unable to find a ride to the [place] clinic which is why she requested transfer [...] office previously. She is a transfer from [place] office. States that she transferred here due to not being able to get a ride down to [place]. She lives in [place] and she reports that it is too far for her to drive. Looks like at that time she was seeing Dr. Burger undergoing work-up and treatment for mainly low [...] combination of hydrocodone and gabapentin to Dr. Burger's office. Does not feel that this was a sufficient quality due to the severity of her spine. Looks like she used to see [facility] for pain and was on high-dose opiate [...] in her spine RF: Prior PM: Yes, [facility] for pain Smoker: Currently 1 pack/day smoker [...] from the hospital. No hospital admissions in [facility] during this time are noted. Today she [...] Much of this encounter is an electronic business center representative/[place] slation of spoken language to printed text. [...] recorded. Lab drug screen, urine [address] [facility], [address], [address], 3 13:51:55 drug screen, urine [address], [address], 12:46:16 drug screen, urine - Qualitative LCMS Screen Panel 2022 023 [facility], [address] [place] [address], [address], 16:44:49 Referral None recorded. Procedures None recorded. Surgeries None recorded. Imaging None recorded. Medication Orders hydrocodone 10 mg-acetamin ophen 325 mg tablet 2022 023 [facility], [address] [facility] [place], [address], 3 11:18:11 gabapentin 800 mg tablet 2022 023 [facility], [address] [facility] [place], [address], 3 11:18:37 hydrocodone 10 mg-acetamin ophen 325 mg tablet 2022 023 [id number] [address] [place], [address], 3 16:02:17 gabapentin 800 mg tablet [email or web address] [id number], [address] [place] [address], [address], 3 15:27:18 hydrocodone 10 mg-acetamin ophen 325 mg tablet 2022 023 [id number], [address] [place], [address], 3 13:44:14 gabapentin 800 mg tablet 2022 023 [id number], [address] [place] [address], [address], 3 13:44:15 Patient TargetsNo targets recorded. Patient Instructions Encounter Date Encounter Id Patient Instructions Last Modified By Organization Details Last Modified Time 10/22/2022 [id number] high blood pressure: care instructions Not available [...] request* - Please send last office note [email or web address] Not available 08/26/2023 08:34:49 Opioid Risk Tool (ORT)* Not available 10/22/2022 13:44:03 Reason for Referral None Reported. Results Created Date Observation Date Name Description Value Unit Range Abnormal Flag Note LastModifiedBy Organization Detail LastModifiedTime 10/23/1910/22/2022 Opioi d Risk Tool (ORT) * ORT 2 Not Available [address], [place], [address], 10/22/2022 13:18:25 Result Notes None recorded. Problems Name Problem SNOMED Code Status Onset Date Resolution Date Notes Provider Name and Address Organization Details Recorded Time Lumbar radiculopathy 344235261 Active 2022 Kasandra stamper null, [place] - [facility] 3 15:17:46 Lumbar spondylosis 829821084 Active 2022 Kasandra stamper null, [place] [facility] 3 15:17:46 Overweight 360682681 Active 2022 Kasandra stamper null, [place] - [facility] 3 15:17:50 Long-term drug therapy Active 2022 CLAUDIA BURGER MD [address] [place] [address], [phone] [facility] [place] [facility] 3 13:42:59 Problem Notes None recorded. Medical Equipment None Reported. Allergies Allergen ID Allergen Name Allergen Category Reaction Reaction Severity Criticality Documentation Date Start Date Code Code System Note Provider Name and Address Organization Details Recorded Time 517021 Substance with sulfonami de structure and antibacte rial mechanism of action (substanc e) medicatio n anaphylax is itching nausea rash respirato ry distress vomiting Not available Not available Not available Not available Not available Not available Not available 10/22/2022 27216 8003 SNOMED GIOVANI Armabula [facility] 3 13:14:11 863999 codeine medicatio n itching nausea other Not available Not available Not available Not available 10/22/2022 2670 RxNorm GIOVANI Ar[place] - [facility] 3 13:14:11 Medications Name Sig Start Date [...] in Arterial blood by Pulse oximetry Systolic And Diastolic Provider Name and Address Organization Details Last Updated DateTime 3 154.94 cm 39.3 kg/m2 41560.2 1 g 110 /min 97 % 97 % 154/83 mm[Hg] Ruma Baker [facility] 3 13:14:53 Date Recorded Body height Body mass index (BMI) Body weight Heart rate Oxygen saturation Oxygen saturation in Arterial blood by Pulse oximetry Systolic And Diastolic Provider Name and Address Organization Details Last Updated DateTime 3 154.94 cm 38.7 kg/m2 07778.4 4 g 76 /min 98 % 98 % 155/73 mm[Hg] Nadira Oneal [facility] 3 14:39:27 Date Recorded Body height Provider Name an d Address Organization Details Last Updated DateTime 06/24/2023 154.94 cm Mone Paker [facility] 06/24/2023 09:52:28 Social History Question Answer Notes LastModified by Organizat ion Details LastModified Time Tobacco Smoking Status Current Every Day Smoker Ruma Baker tyrel [facility] 10/22/2022 13:15:39 Do You Have An Advance [...] Or The Highest Degree You Have Received? [id number] Information not available 05/20/2023 Do You Have A Medical Power Of Cost Analyst? No [email or web address] Information not available 06/24/2023 What Was The Date Of Your Most Recent Tobacco Screening? 06/24/2023 [email or web address] Information not available 06/24/2023 What Is Your Relationship Status? Information not available 10/22/2022 How Much Tobacco Do You Smoke? 1 PPD Information not available 10/22/2022 How Many Years Have You Smoked Tobacco? 30 [email or web address] Information not available 06/24/2023 Sex: Unknown Functional Status Question Answer Note LastModified by Organizat ion Details LastModified Time Do you use any illicit or recreational drugs? No Information not available 10/22/2022 What is your level of alcohol consumption? None Information not available 10/22/2022 Are you currently employed? No disabled [email or web address] Information not available 06/24/2023 Are you able to walk? YESASSIST rolling walker Information not available 05/20/2023 Mental Status [...] Disease N Gout N Seizure Disorder N Thyroid Disease N Atrial Fibrillation N Hernia N Head Trauma/Injury N COPD N Depression Y Anxiety Disorder Y Acid Reflux (GERD) N Cancer N Skin Disorder N Stroke N High Cholesterol N Liver Disease N Rheumatoid Arthritis N Fibromyalgia N Headaches Y Autoimmune Disease N Kidney Disease N Osteoarthritis Y Neurosurgery N DVT N Peptic Ulcer Disease N Anemia N Heart Attack ([place]) N Diabetes Y Cardiomyopathy N Bleeding Disorder [...] SNOMED-CT Code Diagnosis ICD10 Code Diagnosis Note [id number] CLAUDIA BURGER MD [place] [address] ,[facility] [address] [place] [address] 10/22/2022 12:34:49 10/22/2022 13:36:19 Lumbar spondylosis 622336131 M47.816 Lumbar radiculopathy 128 748703 M54.16 Long-term drug therapy 227353184 Z79.891 The urine sample is being sent [...] not prescribed or reported by the patient. [id number] Lonny Keane MD [place] [address] [place] [address] 05/20/2023 14:23:40 05/20/2023 15:03:34 Long-term drug therapy 039343192 Z79.899 Up to date Informed Consent and Opioid Agreement have been signed and incorporat ed into the chart. Patient has been provided written educationa l materials regarding potential adverse effects of medical terminologist opioid therapy MEDICAL INDICATION S: Pain has [...] IS BENEFITING FROM OPIOID THERAPY. Lumbar spondylosis 39730 0009 M47.816 Lumbar radiculopathy 128 722387 M54.16 [id number] MD [place] [address] [place] [address] 06/24/2023 09:43:59 06/24/2023 10:17:15 Long-term drug therapy 997985559 Z79.899 Up to date Informed Consent and Opioid Agreement have been signed and incorporat ed into the chart. Patient has been provided written educationa l materials regarding potential adverse effects of [facility] opioid therapy MEDICAL INDICATION S: Pain has [...] BENEFITING FROM OPIOID THERAPY. 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 Kristen Amato 06/24/2023 2 [employer] (MEDICARE REPLACEMENT/AD VANTAGE - HMO) Kristen mAato [id number] Kirsten Amato 06/27/2023 2 [place] FFS/TRADITIONA L Kristen Amato [id number] Kristen Amato 06/24/2023 1 [place] Kristen Amato [id number] Kristen Amato Notes Date Note Type Note [...] of ADLsDifficulty bathing/grooming secondary to pain.;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 Medications History:NSAIDs: (Mobic--ineffectiveN aproxen--effective); Muscle relaxants: (Flexeril--ineffecti ve Robaxin--effective); Neuropathics: (Gabapentin--effecti ve Lyrica--denies); Opioid pain medications: (Rotan--upset stomach Oxycodone--efffectiv e) Prior Pain Management:yes: ([facility]--closed) Oswestry Disability Index (DORENE)Score/Date Completed: (10/22/2022 71%) Other Conservative Treatments:chiroprac tic treatments:; heat:; ice:; TENS Unit:Notes:Date: 10/22/2022ORT--2PHQ9 --0ODI--71% CLAUDIA BURGER MD [address] [place] [address], [phone] 10/22/2022 13:44:08 05/20/2023 text/html Low back painReported [...] of ADLsDifficulty bathing/grooming secondary to pain.;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.;Difficulty exercising on a regular [...] Neuropathics: (Gabapentin--effecti ve Lyrica--denies); Opioid pain medications: (Rotan--upset stomach Oxycodone--efffectiv e) Adverse Reactions:No nausea; No vomiting; No constipation Other Conservative Treatments:chiroprac tic treatments: ; heat: ; ice: ; TENS unit: Prior Pain Management:yes: ([facility]--closed) Oswestry Disability Index (DORENE)Score/Date Completed: (10/22/2022 71%)Notes:Date: 10/22/2022ORT--2PHQ9 --0ODI--71% Lonny Keane MD [address] [place] [address], [phone], [facility] 05/20/2023 15:34:17 06/24/2023 text/html Low back painReported [...] of ADLsDifficulty bathing/grooming secondary to pain.;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.;Difficulty exercising on a regular [...] Neuropathics: (Gabapentin--effecti ve Lyrica--denies); Opioid pain medications: (Rotan--upset stomach Oxycodone--efffectiv e) Adverse Reactions:No nausea; No vomiting; No constipation Other Conservative Treatments:chiroprac tic treatments: not effective; heat: not effective; ice: not effective; TENS unit: not effective; activity modification: not effective Prior Pain Management:yes: ([facility]--closed) Oswestry Disability Index (DORENE)Score/Date Completed: (10/22/2022 71%)Notes:Date: 10/22/2022ORT--2PHQ9 --0ODI--71% Lonny Keane MD [address] [place] [address], [phone], [facility] - [facility] 06/24/2023 10:35:26 OBGyn Episode No OBEpisode recorded.
--- OUTSIDE RECORDS SUMMARY | 2025-02-04 14:27 | XMS_ITS | Clinical Summary ---
Author Organization [facility] Address [address] [place] [address] Care Team Providers Care Web Systems Developer Name Role Phone Gaurav Alvarenga MD Primary Care Provider [phone] Source Comments This information has been disclosed [...] therelease of HIV test results or diagnoses. [id number] Allergies Active Allergy Reactions Criticality Noted [...] Plan of Treatment Not on file [place] [address] [place] [address] Care Teams Web Systems Developer Relationship Specialty Start Date End Date Gaurav Alvarenga MD PCP - General Family Medicine 05/11/19
--- NOTE | 2025-02-04 14:30 | MR_ITS ---
FINAL REPORT CLINICAL HISTORY: Osteophyte Complex C5-C6 neck pain with bilateral numbness , pain and tingling COMPARISON: NONE FINDINGS: MRI CERVICAL SPINE, WITHOUT AND WITH CONTRAST TECHNIQUE: Multiplanar MR without and with contrast administration. FINDINGS: There is a mass in the right thyroid measuring up to 10 mm. Given lack of enhancement this is compatible with a benign cyst and no further imaging follow-up is indicated. There is straightening of the cervical spine without subluxation. Discogenic endplate signal changes are noted at C5-6. There is no mass or abnormal enhancement. C2-C3: No significant disc disease is present. There is no canal stenosis. C3-C4: Minimal annular disc bulge. C4-C5: Small left paracentral disc protrusion. Mild annular disc bulge. C5-C6: Mild annular disc bulge. Moderate left neural foraminal narrowing. C6-C7: Mild annular disc bulge asymmetric to the left. Mild left neural foraminal narrowing. C7-T1: No significant disc disease is present. There is no canal stenosis. IMPRESSION: Mild degenerative changes without significant canal stenosis or abnormal enhancement. Reviewed, Interpreted and Dictated by Naomy Renee MD Transcribed by Rita Acosta Authenticated and [facility]
[2025-02-04] MEDS: 0.9 % SODIUM CHLORIDE 50 ML VIAL 10 ML IV (15:36)
[2025-02-04] MEDS: GADOTERIDOL INJ 20ML SYRINGE 18 ML IV (15:36)
== END 2025-02-04 23:59 | disposition home or self-care (01) ==
LOC: RAD 14:24
PROVIDERS: PCP Family Medicine; Visit Provider Family Medicine
DX: M47.812 Spondylosis without myelopathy or radiculopathy, cervical region (principal); M54.50 Low back pain, unspecified; M25.78 Osteophyte, vertebrae
CPT/HCPCS: 72156; A9576